=== PATIENT | male | born 1935 | race Caucasian/White ===

== ENCOUNTER 2016-05-18 23:23 | Inpatient (IN) ==
--- NOTE | 2016-05-19 00:34 | Emergency Department Note ---
Disposition Clinical Impression: Femur fracture, right Qualifiers: Encounter type: initial encounter Femur location: intertrochanteric Fracture type: closed Disposition: Admitted As Inpatient Time of Disposition: 01:51 Fall HPI - General Chief Complaint: ED Fall Stated Complaint: fall Time Seen by Provider: 05/18/16 23:39 Source: patient, EMS Mode of arrival: private vehicle Limitations: no limitations Nursing Notes Reviewed: Yes Vital Signs Reviewed: Yes - History of Present Illness HPI Narrative: 80-year-old male presents to the emergency department via EMS status post fall with complaint of an injury to his head, right thigh and abrasions to his fingers. Patient does state some possible loss of consciousness. He does remember the complete event. Patient states that he tripped and fell while walking back into his living area and attempting to move his wheelchair after smoking a cigarette. Patient is a DNR CC. 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 Fall From: standing Fall Witnessed: no Place Fall Occurred: [facility] Loss of Consciousness: unsure Prolonged Down Time?: no Context: tripped/slipped Location of injury: head Severity: moderate Quality: aching Associated symptoms (after fall): Denies: neck pain - Related Data Home Medications Medication Instructions Recorded Confirmed Albuterol Neb [AccuNeb] 0.83 mg IH Q4H PRN 03/08/15 03/08/15 Albuterol Sulfate [Albuterol 2 puff AER Q4H 03/08/15 03/08/15 Inhaler] Aspirin Enteric Coated [Aspirin] 81 mg PO DAILY 03/08/15 03/08/15 Clopidogrel [Plavix] 75 mg PO DAILY 03/08/15 03/08/15 Cyanocobalamin/FA/Pyridoxine 1 each PO DAILY 03/08/15 03/08/15 [[place] Tablet] Docusate Sodium [Colace] 100 mg PO DAILY 03/08/15 03/08/15 FLUoxetine HCl [PROzac] 20 mg PO DAILY 03/08/15 03/08/15 Fludrocortisone Acetate [Florinef] 0.1 mg PO BID 03/08/15 03/08/15 Furosemide [Lasix] 40 mg PO DAILY 03/08/15 03/08/15 HYDROcodone/Acet 5/325 mg [[place] 1 - 2 tab PO BID PRN 03/08/15 03/08/15 5-325 mg] LevETIRAcetam [Keppra] 500 mg PO BID 03/08/15 03/08/15 Midodrine [ProAmatine] 10 mg PO 0700,1200,199903/08/15 03/08/15 Pantoprazole Sodium 40 mg PO DAILY 03/08/15 03/08/15 Phenytoin [Dilantin] 50 mg PO HS 03/08/15 03/08/15 Potassium Chloride 20 meq PO BID 03/08/15 03/08/15 Pregabalin [Lyrica] 50 mg PO BID 03/08/15 03/08/15 Ranolazine [Ranexa] 500 mg PO BID 03/08/15 03/08/15 RisperiDONE [RisperDAL] 0.25 mg PO HS 03/08/15 03/08/15 Simvastatin [Zocor] 20 mg PO HS 03/08/15 03/08/15 Sucralfate [Carafate] 1 gm PO QID 03/08/15 03/08/15 Previous Rx's Medication Instructions Recorded Azithromycin [Azithromycin 6-Tab 250 mg PO DAILY #6 tab 03/08/15 Pack] PredniSONE [Prednisone] 3 tab PO DAILY #20 tablet 03/08/15 Allergies Allergy/AdvReac Type Severity Reaction Status Date / Time nitroglycerin Allergy Rash Verified 03/08/15 14:01 All systems ED: reviewed and negative except as stated. Constitutional: Denies: fever, chills Cardiovascular: Denies: chest pain Respiratory: Denies: cough, dyspnea Gastrointestinal: Denies: abdominal pain, nausea, vomiting Musculoskeletal: Reports: arthralgia, myalgia. Denies: back pain, neck pain Integumentary: Reports: abrasion. Denies: rash, lesions Neurological: Denies: headache Psychiatric: Denies: anxiety, depression, suicidal thoughts, homicidal thoughts Fall PMH - Past Medical History Medical history: Reports: cancer, COPD, coronary artery disease, CVA, glaucoma, hypertension, myocardial infarction, other Surgical history: Reports: angioplasty/stent Psychiatric history: Reports: depression - Social History Smoking Status: Current every day smoker Alcohol use: Reports: none Drug use: Reports: none Physical Exam - General Limitations: no limitations General appearance: alert - Head Head exam: atraumatic, normocephalic, normal inspection - Eye Eye exam: Present: normal appearance, PERRL - Neck Neck exam: Present: normal inspection, full ROM, trachea midline. Absent: tenderness - Chest Chest inspection: Present: normal inspection, symmetric chest wall rise - Respiratory Respiratory exam: Present: normal lung sounds bilaterally. Absent: respiratory distress - Cardiovascular Cardiovascular exam: Present: regular rate, normal rhythm, normal heart sounds - Abdominal Exam Abdominal exam: Present: soft, Non-Tender, normal bowel sounds. Absent: distention, guarding, rebound, rigidity - Expanded Lower Extremity Exam Upper leg exam: Present: tenderness, swelling Gait: not tested/not observed - Back Exam Back exam: Present: normal inspection, full ROM. Absent: tenderness, paraspinal tenderness, vertebral tenderness - Neurological Exam Neurological exam: Present: alert, oriented X3 - Psychiatric Psychiatric exam: Present: normal affect, normal mood - Skin Skin exam: Present: warm, dry, intact, normal color, other (Several small abrasions noted to bilateral hands and fingers. Bleeding controlled. Neurovascularly intact distally.) Course - Consultations Consultation #1: Discussed fracture with Dr. Santiago, discussed with Dr. Seya, he accepts, ortho will consult. Time: 01:49 Vital Signs Temperature 97.2 F L 05/18/16 23:25 Pulse Rate 59 05/18/16 23:25 Respiratory Rate 18 05/18/16 23:25 Blood Pressure 125/67 05/18/16 23:25 O2 Sat by Pulse Oximetry 98 05/18/16 23:25 Temperature 97.2 F L 05/18/16 23:25 Pulse Rate 65 05/19/16 02:04 Respiratory Rate 16 05/19/16 02:04 Blood Pressure 136/71 05/19/16 02:04 O2 Sat by Pulse Oximetry 100 05/19/16 02:04 Oxygen Delivery Oxygen Delivery Room Air Fall - Radiology Data Radiology results reviewed: Yes I reviewed the patient's radiology results. Attestation Statement - Attestation Attestation: I, Ziggy Pitts MD, personally performed a history and physical exam of the patient and discussed their management with the midlevel provicer, PAC/ROLL COVERER. I reviewed the midlevel provider's note and agree with the documented findings, medical decision making, and plan of care. 80-year-old male presents to the emergency department after he had a fall landing on his right hip and hitting his head. He denies loss of consciousness or headache. No neck pain. He does complain of pain in the right hip and right femur. On examination patient is a well-developed thin elderly male in no acute distress. He is alert and oriented 3. There is no cyanosis or diaphoresis. Head is atraumatic with no obvious injuries. No scalp tenderness or hematomas. Neck supple and nontender with full range of motion. Breath sounds are equal bilaterally. Heart regular rate and rhythm. Abdomen soft and nontender with normal bowel sounds. Wrist tenderness to palpation over the right hip and proximal to mid right femur. No obvious deformity. Neurovascular function distally. CT of the head and cervical spine was negative. X-ray of the right hip shows a nondisplaced intertrochanteric fracture. The PA discussed the case with the orthopedist americanization teacher, Dr. Santiago, and he recommended admission by the hospitalist. The hospitalist, Dr. Seay, was then consulted and accepted admission of the patient.
[2016-05-19] MEDS ORDERED: *HR* Morphine 2 MG/ML SYRINGE IV ONE (01:49)
[2016-05-19] MEDS ORDERED: Ondansetron 4 MG/2 ML VIAL IV ONE (01:49)
[2016-05-19] MEDS ORDERED: Ondansetron 4 MG/2 ML VIAL IVP PRN (02:08)
[2016-05-19] MEDS ORDERED: Naloxone 0.4 MG/ML INJ IVP PRN (02:08)
[2016-05-19] MEDS ORDERED: *HR* Morphine 2 MG/ML SYRINGE IVP PRN (02:08)
[2016-05-19] MEDS ORDERED: 0.9 % Sodium Chloride 1,000 ML IVC SCH (03:00)
--- NOTE | 2016-05-19 03:02 | Internal Med History&Physical ---
<RohitDanii Amandayaron Miller - Last Filed: 05/19/16 05:08> Date of Encounter: 05/19/16 Time of Encounter: 02:30 Assessment and Plan (1) Femur fracture, right Current visit: Yes Status: Acute XR Right Hip nondisplaced intertrochanteric fracture CT head without acute abnormality CT cervical spine without acute fracture or traumatic injury Chest x-ray left base atelectasis versus pneumonia, no acute fracture, no pleural effusion EKG-electronic pacemaker, interventricular conduction delay IVF, Pain management Consult Dr. 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 Current visit: Yes Status: Acute Echo 10/11/2015: LVEF 30-35%, global hypokinesis septum more hypokinetic than other segments -Grade 1 diastolic dysfunction Pacemaker-dependent cardiomyopathy Heart failure may be precipitating factor for fall Need to reevaluate heart function Echo, pending (3) Pre-syncope Current visit: Yes Status: Acute Pre-syncopal event leading to a fall and hip fracture Patient with pacemaker in place, also with known history of orthostatic hypotension Will interrogate pacemaker Carotid duplex US, pending Consult cardiology (4) History of orthostatic hypotension Current visit: Yes Status: Acute Continue midodrine and fludrocortisone Plan as above to evaluate additional causes of pre-syncope (5) Pacemaker Current visit: Yes Status: Acute Consult for pacemaker interrogation (6) DVT prophylaxis Current visit: Yes Status: Acute Internal Medicine - H&P: HPI Chief complaint: fall with broken femur Admitted From: Emergency Dept Plans for Post Hospital Care: Transfer Halfway Facility History of present illness: Mr. Beltran is a 80 year old male who presents to the hospital from [facility] patient states that at around 10 PM last night he went out to have a smoke. In order to go outside he must get out of his wheelchair, stand, and push his wheelchair over an elevated threshold. He states that when he returned inside, he fell as he tried to lift his wheelchair over the threshold. Patient states that he hit his head on a chair when he fell, cutting his right ear. He states that he lost consciousness. half-way worker found him. Patient states pain was 10 out of 10 after the fall and is now an 8-9 out of 10 after pain medication was given. Patient states that at the time of the fall he was feeling dizzy. He states that he has recently been feeling dizzy often. Denies headache, dizziness, blurry vision, double vision. Past Med Surg Social Fam HX - Past Medical History Medical history: cancer, COPD, coronary artery disease, CVA, glaucoma, hypertension, myocardial infarction, other (Left rib fractures, sinus bradycardia, pacemaker) Psychiatric history: depression - Past Surgical History Surgical History: angioplasty/stent (x1) - Social History Smoking Status: Current every day smoker Smokeless Tobacco Status: No Alcohol use: none Drug use: none - Family History Mother History Unknown: Yes Internal Medicine - H&P: Meds Albuterol Sulfate [Albuterol Inhaler] 2 puff IH Q4H PRN 03/08/15 [History] Aspirin Enteric Coated [Aspirin] 81 mg PO DAILY 03/08/15 [History] Clopidogrel [Plavix] 75 mg PO DAILY 03/08/15 [History] FLUoxetine HCl [PROzac] 40 mg PO DAILY 03/08/15 [History] Fludrocortisone Acetate [Florinef] 0.1 mg PO DAILY 03/08/15 [History] Furosemide [Lasix] 40 mg PO DAILY 03/08/15 [History] LevETIRAcetam [Keppra] 500 mg PO BID 03/08/15 [History] Midodrine [ProAmatine] 10 mg PO TID 03/08/15 [History] Potassium Chloride 20 meq PO BID 03/08/15 [History] Ranolazine [Ranexa] 500 mg PO BID 03/08/15 [History] RisperiDONE [RisperDAL] 0.25 mg PO HS 03/08/15 [History] Sucralfate [Carafate] 1 gm PO QID 03/08/15 [History] Albuterol Neb [Proventil Neb] 2.5 mg IH Q4HR PRN 05/19/16 [History] Ferrous Gluconate 324 mg PO DAILY 05/19/16 [History] Lisinopril [Zestril] 5 mg PO DAILY 05/19/16 [History] Losartan Potassium [Cozaar] 25 mg PO DAILY 05/19/16 [History] Metoprolol [Lopressor] 12.5 mg PO BID 05/19/16 [History] Phenytoin ER [Dilantin ER] 300 mg PO HS 05/19/16 [History] Allergies nitroglycerin Allergy (Verified 03/08/15 14:01) Rash All Systems PM: A 10-system review of systems was performed and is negative for pertinent findings except as documented above in the HPI. - Constitutional Constitutional: falls, no chills, no fever(s) - EENT Eyes: no blurry vision, no change in vision, no diplopia Additional comments: abrasion to right ear - Cardiovascular Cardiovascular ROS IM: dyspnea on exertion (chronic), no chest pain - Respiratory Respiratory: no cough - Gastrointestinal Gastrointestinal: no abdominal pain, no nausea, no vomiting - Genitourinary Genitourinary ROS male: no difficulty urinating - Musculoskeletal Musculoskeletal ROS IM: no myalgias (right lower extremity) - Neurological Neurological ROS: disequilibrium, dizziness, tremor(s) (chronic) - Constitutional Vitals: Temp Pulse Resp BP Pulse Ox 97.2 F L 65 16 136/71 100 05/18/16 23:25 05/19/16 02:04 05/19/16 02:22 05/19/16 02:22 05/19/16 02:04 General appearance: Present: A&O X 3, pleasant (Smiles during exam), no acute distress, answers questions appropriately - Head Head exam: Present: normocephalic (Cut to right ear) - Eye Eye exam: Present: EOMI, PERRL - ENT ENT exam: Present: mucous membranes dry - Neck Neck exam general surgery: Present: full ROM, normal inspection, supple - Respiratory Respiratory exam: Present: decreased breath sounds, prolonged expiratory phase, wheezes. Absent: accessory muscle use, chest wall tenderness, respiratory distress, tachypnea - Cardiovascular Cardiovascular exam: Present: distant heart sounds, RRR, +S2, systolic murmur Additional comments: no carotid bruit - GI/Abdominal GI/Abdominal exam: Present: normal bowel sounds, soft. Absent: hepatomegaly, splenomegaly, tenderness - Extremities Exam Extremities exam: Present: tenderness (Right lower extremity), radial pulses palpable and symetrical. Absent: pedal edema Additional comments: Right lower extremity warm with femoral and DP pulses 2+ No apparent hematoma - Neurological Exam Neurological exam: Present: CN II-XII intact, oriented X3. Absent: no focal deficits, facial droop, speech deficit - Psychiatric Psychiatric exam: Present: normal affect, normal mood Internal Med - H&P Results - Labs CBC & Chem 7: 05/19/16 02:58 05/19/16 02:58 Labs: Laboratory Tests 05/19/16 02:58 WBC 21.6 H RBC 3.60 L Hgb 10.6 L Hct 33.9 L MCV 94.2 MCH 29.4 MCHC 31.3 L RDW 13.6 Plt Count 244 MPV 11.9 Immature Gran % 0.6 Seg Neutrophils % 83.7 Lymphocytes % 6.3 Monocytes % 7.6 Eosinophils % 1.3 Basophils % 0.5 Neutrophils # 18.0 H Lymphocytes # 1.4 Monocytes # 1.6 H Eosinophils # 0.3 Basophils # 0.1 Immature Plt Fraction 8.9 H - EKG Data EKG shows normal: sinus rhythm, axis (left axis) Rate: normal (electronic atrial pacemaker) - Impressions Cervical Spine CT 05/18/16 23:39 IMPRESSION: No fracture identified. D/ / Aldair Garland MD / Aldair Garland MD Interpreting Provider: Aldair Garland MD Head CT 05/18/16 23:39 IMPRESSION: No acute intracranial abnormality. D/ / Aldair Garland MD / Aldair Garland MD Interpreting Provider: Aldair Garland MD Femur X-Ray 05/19/16 00:01 IMPRESSION: Intertrochanteric fracture of the right hip. D/ / Aldair Garland MD / Aldair Garland MD Interpreting Provider: Aldair Garland MD Pelvis X-Ray 05/19/16 00:01 IMPRESSION: Intertrochanteric fracture of the right hip. D/ / Aldair Garland MD / Aldair Garland MD Interpreting Provider: Aldair Garland MD Chest X-Ray 05/19/16 01:49 IMPRESSION: Left basilar atelectasis or, less likely, pneumonia. D/ / Riccardo Ferrara MD / Riccardo Ferrara MD Interpreting Provider: Riccardo Ferrara MD - Attending Attestation I examined this patient and my medical decision-making was reviewed with the TAPER AND FLOATER/PA/Advanced Practice Nurse/Resident Physician. I agree with the documented findings, disposition and treatment plan as described except to the extent set forth below. <HouMargarito Blu - Last Filed: 05/22/16 01:07> Internal Medicine - H&P: HPI History of present illness: Mr. Beltran is a 80 year old male to [facility] with chief complaint of mechanical fall with acute pain of his right hip and inability to walk due to intertrochanteric fracture. The patient was visited and interviewed and examined. I examined this patient and my medical decision-making was reviewed with the Resident Physician. I agree with the documented findings, disposition and treatment plan as described except to the extent set forth below. Cumulative laboratory and radiographic database was reviewed and considered and discussed. Pertinent ancillary medical records including ECW and PCI documentation when available was reviewed and considered. Given the patient's presenting concerns, past medical history, clinical findings and symptoms, he is admitted at this time did the consider further evaluation and disposition. Orders were written as per the computerized physician border guard system........................... All Systems PM: A 10-system review of systems was performed and is negative for pertinent findings except as documented above in the HPI. - Constitutional Vitals: Temp Pulse Resp BP Pulse Ox 99.0 F 89 15 124/66 100 05/21/16 21:38 05/21/16 21:38 05/21/16 21:38 05/21/16 21:38 05/21/16 21:38 Internal Med - H&P Results - Labs CBC & Chem 7: 05/21/16 05:59 05/20/16 03:19 Labs: Short CBC 05/21/16 Range/Units 05:59 Hgb 8.3 L (12.9-16.9) g/dL Hct 27.1 L (37.5-50.1) % - Impressions ITS Impressions Chest CT 05/19/16 04:27 IMPRESSION: Slight bibasilar atelectasis or scarring. No acute airspace disease. Slight to mild bullous changes. No significant acute abnormality. Old granulomatous disease. No finding worrisome for malignancy. Benign left adrenal nodule. No follow-up necessary. D/ / Ernst Mckenzie MD / Ernst Mckenzie MD Interpreting Provider: Ernst Mckenzie MD Fluoroscopy 05/20/16 17:13 IMPRESSION: Intraprocedural fluoroscopic spot images as above. See separate procedure report for more information. D/ / Vazquez Mccarthy MD / Vazquez Mccarthy MD Interpreting Provider: Vazquez Mccarthy MD Hip X-Ray 05/20/16 17:13 IMPRESSION: Intraprocedural fluoroscopic spot images as above. See separate procedure report for more information. D/ / Vazquez Mccarthy MD / Vazquez Mccarthy MD Interpreting Provider: Vazquez Mccarthy MD Abnormal lab results WBC 12.4 K/mcL (4.3-11.1) H 05/20/16 03:19 RBC 3.14 M/mcL (4.19-5.50) L 05/20/16 03:19 Hgb 8.3 g/dL (12.9-16.9) L 05/21/16 05:59 Hct 27.1 % (37.5-50.1) L 05/21/16 05:59 MCHC 31.2 g/dL (31.6-35.5) L 05/20/16 03:19 Monocytes # 1.9 K/mcL (0.0-1.3) H 05/20/16 03:19 Immature Plt Fraction 8.9 % (1.1-6.1) H 05/19/16 02:58 APTT 25.2 Seconds (26.0-36.0) L 05/19/16 02:58 Glucose 119 mg/dL (70-99) H 05/20/16 03:19 LDL Cholesterol, Calc 117 mg/dL (0-99) H 05/20/16 03:19 HDL Cholesterol 37 mg/dL (40-59) L 05/20/16 03:19 Urine Microscopic RBC 3-5 per hpf (0-3) H 05/19/16 03:30 Ur Squamous Epith Cells Many per lpf (None-Few) H 05/19/16 03:30 Laboratory Last Values WBC 12.4 K/mcL (4.3-11.1) H 05/20/16 03:19 RBC 3.14 M/mcL (4.19-5.50) L 05/20/16 03:19 Hgb 8.3 g/dL (12.9-16.9) L 05/21/16 05:59 Hct 27.1 % (37.5-50.1) L 05/21/16 05:59 MCV 93.9 fL (83.0-100.0) 05/20/16 03:19 MCH 29.3 pg (28.0-33.3) 05/20/16 03:19 MCHC 31.2 g/dL (31.6-35.5) L 05/20/16 03:19 RDW 13.7 % (11.5-14.5) 05/20/16 03:19 Plt Count 189 K/mcL (140-400) 05/20/16 03:19 MPV 11.9 fL (9.4-12.4) 05/20/16 03:19 Immature Gran % 0.5 % (0-4) 05/20/16 03:19 Seg Neutrophils % 69.2 % 05/20/16 03:19 Lymphocytes % 12.5 % 05/20/16 03:19 Monocytes % 15.2 % 05/20/16 03:19 Eosinophils % 2.0 % 05/20/16 03:19 Basophils % 0.6 % 05/20/16 03:19 Neutrophils # 8.6 K/mcL (1.6-8.9) 05/20/16 03:19 Lymphocytes # 1.6 K/mcL (0.6-4.6) 05/20/16 03:19 Monocytes # 1.9 K/mcL (0.0-1.3) H 05/20/16 03:19 Eosinophils # 0.3 K/mcL (0.0-0.6) 05/20/16 03:19 Basophils # 0.1 K/mcL (0.0-0.2) 05/20/16 03:19 Immature Plt Fraction 8.9 % (1.1-6.1) H 05/19/16 02:58 PT 11.1 Seconds (9.4-12.1) 05/20/16 03:19 INR 1.0 05/20/16 03:19 APTT 25.2 Seconds (26.0-36.0) L 05/19/16 02:58 Sodium 139 mEq/L (136-145) 05/20/16 03:19 Potassium 4.4 mEq/L (3.5-4.5) 05/20/16 03:19 Chloride 105 mEq/L (98-109) 05/20/16 03:19 Carbon Dioxide 27 mEq/L (19-29) 05/20/16 03:19 BUN 19 mg/dL (8-26) 05/20/16 03:19 Creatinine 1.12 mg/dL (0.72-1.25) 05/20/16 03:19 Est GFR ( Amer) > 60 (> 60) 05/20/16 03:19 Est GFR (Non-Af Amer) > 60 (> 60) 05/20/16 03:19 BUN/Creatinine Ratio 17 (6-26) 05/20/16 03:19 Glucose 119 mg/dL (70-99) H 05/20/16 03:19 Calculated Osmolality 291 (280-300) 05/20/16 03:19 Calcium 8.7 mg/dL (8.6-10.8) 05/20/16 03:19 Phosphorus 3.0 mg/dL (2.3-4.7) 05/19/16 02:58 Magnesium 2.1 mg/dL (1.6-2.6) 05/19/16 02:58 Triglycerides 110 mg/dL (< 150) 05/20/16 03:19 Cholesterol 176 mg/dL (< 200) 05/20/16 03:19 LDL Cholesterol, Calc 117 mg/dL (0-99) H 05/20/16 03:19 VLDL Cholesterol, Calc 22 mg/dL (< 31) 05/20/16 03:19 HDL Cholesterol 37 mg/dL (40-59) L 05/20/16 03:19 Cholesterol/HDL Ratio 4.8 (0-4.9) 05/20/16 03:19 Urine Color Yellow (Yellow) 05/19/16 03:30 Urine Clarity Clear (Clear) 05/19/16 03:30 Urine pH 6.0 pH Units (5.0-8.0) 05/19/16 03:30 Ur Specific [place] 1.022 (1.010-1.025) 05/19/16 03:30 Urine Protein Trace mg/dL (Neg-Trace) 05/19/16 03:30 Urine Glucose (UA) Normal mg/dL (Normal) 05/19/16 03:30 Urine Ketones Negative mg/dL (Negative) 05/19/16 03:30 Urine Blood Negative (Negative) 05/19/16 03:30 Urine Nitrite Negative (Negative) 05/19/16 03:30 Urine Bilirubin Negative (Negative) 05/19/16 03:30 Urine Urobilinogen Normal mg/dL (Normal) 05/19/16 03:30 Ur Leukocyte Esterase Negative (Negative) 05/19/16 03:30 Urine Microscopic RBC 3-5 per hpf (0-3) H 05/19/16 03:30 Urine Microscopic WBC 0-3 per hpf (0-3) 05/19/16 03:30 Ur Squamous Epith Cells Many per lpf (None-Few) H 05/19/16 03:30 Urine Bacteria None Seen per hpf (None-Few) 05/19/16 03:30 Hyaline Casts None Seen per lpf (None-Few) 05/19/16 03:30 Ur Culture Indicated? NO (NO) 05/19/16 03:30 Blood Type B POSITIVE 05/21/16 08:44 Antibody Screen NEGATIVE 05/21/16 08:44 Crossmatch See Detail 05/21/16 08:44 - Attending Attestation My signature below is to certify that this patient is under my care and that I, or the Resident Physician working with me, has had a [id number] encounter with this patient. Plan of care has been reviewed and discussed in detail. Questions addressed. Advance care directive discussion briefly addressed. The patient does acknowledge specific restrictions to be initiated. Outpatient medication schedules will be reviewed, confirmed and facilitated as appropriate. Reconciliation of home treatments including adjustments, substitutions and reintroduction to the treatment regimen to address necessary mental facilities for chronic pre-existing medical conditions. Smoking cessation counseling briefly addressed. The patient accepts nicotine substitutes at this admission. Hospital course depend on clinical findings, response and difficult stated interventions. The patient is at risk for further acute clinical decline and morbidity given presenting chief complaint, findings and associated comorbidities. Condition is serious. Prognosis is cautiously optimistic. CODE STATUS is DNR comfort care arrest DNI.
[2016-05-19] MEDS ORDERED: Acetaminophen 325 MG TABLET PO PRN (03:04)
[2016-05-19 03:22] LABS: Basophils # 0.1 K/mcL (0.0-0.2); Basophils % 0.5 %; Eosinophils # 0.3 K/mcL (0.0-0.6); Eosinophils % 1.3 %; Hematocrit 33.9 % (37.5-50.1); Hemoglobin 10.6 g/dL (12.9-16.9); Immature Granulocytes % 0.6 % (0-4); Immature Platelets 8.9 % (1.1-6.1); Lymphocytes # 1.4 K/mcL (0.6-4.6); Lymphocytes % 6.3 %; Mean Corpuscular HGB Conc 31.3 g/dL (31.6-35.5); Mean Corpuscular Hemoglobin 29.4 pg (28.0-33.3); Mean Corpuscular Volume 94.2 fL (83.0-100.0); Mean Platelet Volume 11.9 fL (9.4-12.4); Monocytes # 1.6 K/mcL (0.0-1.3); Monocytes % 7.6 %; Platelet Count 244 K/mcL (140-400); Red Cell Distribution Width 13.6 % (11.5-14.5); Segmented Neutrophils % 83.7 %
[2016-05-19 03:28] LABS: INR 1.1; Prothrombin Time 11.5 Seconds (9.4-12.1)
[2016-05-19 03:31] LABS: Activated Partial Thrombo Time 25.2 Seconds (26.0-36.0)
[2016-05-19 03:44] LABS: BUN/Creatinine Ratio 19 (6-26); Blood Urea Nitrogen 18 mg/dL (8-26); Calcium 9.5 mg/dL (8.6-10.8); Carbon Dioxide 26 mEq/L (19-29); Chloride 106 mEq/L (98-109); Glucose 141 mg/dL (70-99); Magnesium 2.1 mg/dL (1.6-2.6); Osmolality,Calculated 296 (280-300); Potassium 4.9 mEq/L (3.5-4.5); Sodium 141 mEq/L (136-145); eGFR For African Americans > 60 (> 60); eGFR For Non-African Americans > 60 (> 60)
[2016-05-19 03:48] LABS: Bilirubin,Urine Negative (Negative); Blood,Urine Negative (Negative); Clarity,Urine Clear (Clear); Color,Urine Yellow (Yellow); Glucose,Urine (UA) Normal (Normal); Ketones,Urine Negative (Negative); Leukocyte Esterase,Urine Negative (Negative); Nitrite,Urine Negative (Negative); Protein,Urine Trace mg/dL (Neg-Trace); Specific Gravity,Urine 1.022 (1.010-1.025); Urobilinogen,Urine Normal (Normal)
[2016-05-19 03:51] LABS: Bacteria,Urine None Seen per hpf (None-Few); Hyaline Casts,Urine None Seen per lpf (None-Few); Squamous Epithelial Cell,Urine Many per lpf (None-Few); WBC,Urine 0-3 per hpf (0-3)
[2016-05-19] MEDS ORDERED: Acetaminophen 325 MG TABLET PO SCH (04:00)
[2016-05-19] MEDS ORDERED: *HR* OxyCODONE Immed Rel 5 MG TABLET PO SCH (04:00)
[2016-05-19] MEDS ORDERED: Albuterol Neb 0.63 MG/3 ML VIAL IH PRN (05:38)
--- NOTE | 2016-05-19 06:37 | Orthopedic Consult Note ---
Date of Encounter: 05/19/16 Time of Encounter: 06:36 History of Present Illness HPI: Mr. Beltran is a 80 year old male Lives in a half-way status post fall yesterday injuring his right hip. Patient is alert and oriented 3 Right lower extremity shortened external rotated decreased range of motion secondary to pain Neurovascular intact X-rays show right hip intratrochanteric fracture Plan is for surgery tomorrow right hip open reduction intramedullary nail fixation discussed risks benefits as well as recovery with patient Past Med Surg Social Fam HX - Past Medical History Medical history: cancer, COPD, coronary artery disease, CVA, glaucoma, hypertension, myocardial infarction, other (Left rib fractures, sinus bradycardia, pacemaker) Psychiatric history: depression - Past Surgical History Surgical History: angioplasty/stent (x1) - Social History Smoking Status: Current every day smoker Packs per day: 0.5 Smokeless Tobacco Status: No Alcohol use: none Drug use: none - Family History Mother History Unknown: Yes Medications and Allergies Albuterol Neb [AccuNeb] 0.83 mg IH Q4H PRN 03/08/15 [History] Albuterol Sulfate [Albuterol Inhaler] 2 puff AER Q4H 03/08/15 [History] Aspirin Enteric Coated [Aspirin] 81 mg PO DAILY 03/08/15 [History] Clopidogrel [Plavix] 75 mg PO DAILY 03/08/15 [History] FLUoxetine HCl [PROzac] 20 mg PO DAILY 03/08/15 [History] Fludrocortisone Acetate [Florinef] 0.1 mg PO DAILY 03/08/15 [History] Furosemide [Lasix] 40 mg PO DAILY 03/08/15 [History] LevETIRAcetam [Keppra] 500 mg PO BID 03/08/15 [History] Midodrine [ProAmatine] 10 mg PO 0700,1200,2000 03/08/15 [History] Pantoprazole Sodium 40 mg PO DAILY 03/08/15 [History] Phenytoin [Dilantin] 100 mg PO HS 03/08/15 [History] Potassium Chloride 20 meq PO BID 03/08/15 [History] Ranolazine [Ranexa] 500 mg PO BID 03/08/15 [History] RisperiDONE [RisperDAL] 0.25 mg PO HS 03/08/15 [History] Sucralfate [Carafate] 1 gm PO QID 03/08/15 [History] Ferrous Gluconate 324 mg PO DAILY 05/19/16 [History] Lisinopril [Zestril] 5 mg PO DAILY 05/19/16 [History] Losartan Potassium [Cozaar] 25 mg PO DAILY 05/19/16 [History] Metoprolol [Lopressor] 25 mg PO BID 05/19/16 [History] Allergies nitroglycerin Allergy (Verified 03/08/15 14:01) Rash All Systems Reviewed: A 10-system review of systems was performed and is negative for pertinent findings except as documented above in the HPI. Physical Exam - Constitutional Vitals: Temp Pulse Resp BP Pulse Ox 97.5 F L 69 16 129/63 100 05/19/16 02:48 05/19/16 02:48 05/19/16 02:48 05/19/16 02:48 05/19/16 02:48 Results - Labs Result Diagrams: 05/19/16 02:58 05/19/16 02:58 Labs: Abnormal lab results WBC 21.6 K/mcL (4.3-11.1) H 05/19/16 02:58 RBC 3.60 M/mcL (4.19-5.50) L 05/19/16 02:58 Hgb 10.6 g/dL (12.9-16.9) L 05/19/16 02:58 Hct 33.9 % (37.5-50.1) L 05/19/16 02:58 MCHC 31.3 g/dL (31.6-35.5) L 05/19/16 02:58 Neutrophils # 18.0 K/mcL (1.6-8.9) H 05/19/16 02:58 Monocytes # 1.6 K/mcL (0.0-1.3) H 05/19/16 02:58 Immature Plt Fraction 8.9 % (1.1-6.1) H 05/19/16 02:58 APTT 25.2 Seconds (26.0-36.0) L 05/19/16 02:58 Potassium 4.9 mEq/L (3.5-4.5) H 05/19/16 02:58 Glucose 141 mg/dL (70-99) H 05/19/16 02:58 Urine Microscopic RBC 3-5 per hpf (0-3) H 05/19/16 03:30 Ur Squamous Epith Cells Many per lpf (None-Few) H 05/19/16 03:30 H & H 05/19/16 Range/Units 02:58 Hgb 10.6 L (12.9-16.9) g/dL Hct 33.9 L (37.5-50.1) % All other labs normal. Consult Discharge Plan - Plan Referrals: Edson Menendez MD [Primary Care Provider] -
[2016-05-19] MEDS ORDERED: Albuterol Neb 0.63 MG/3 ML VIAL IH SCH (08:00)
[2016-05-19] MEDS: Sucralfate 1 GM TABLET PO SCH ×4 (10:17→20:15)
[2016-05-19] MEDS: levETIRAcetam 250 MG TABLET PO SCH ×2 (10:18→20:15)
[2016-05-19] MEDS: FLUoxetine 20 MG CAPSULE PO SCH (10:18)
[2016-05-19] MEDS: Ranolazine 500 MG TAB.ER.12H PO SCH ×2 (10:19→20:15)
[2016-05-19] MEDS: Furosemide 40 MG TABLET PO SCH (10:19)
[2016-05-19] MEDS: Pantoprazole 40 MG VIAL IVP SCH (10:20)
[2016-05-19] MEDS: *HR* OxyCODONE Immed Rel 5 MG TABLET PO PRN ×3 (10:35→20:15)
--- NOTE | 2016-05-19 11:03 | Cardiology Consult Note ---
<Elias Joe R - Last Filed: 05/19/16 11:10> Date of Encounter: 05/19/16 Time of Encounter: 11:03 Assessment and Plan (1) Pre-operative cardiovascular examination Current Visit: Yes Status: Acute Pt has hx of CAD and PCI approximately 6 years ago at [facility]. Hx of ICMP, which has since resolved. Pt had a negative stress test 05/2014. Echo obtained this AM shows preserved EF, no significant valvular dysfunction. Pt reports atypical chest pain--left sided at rest when he is upset or anxious-- noncardiac. Denies any chest pain on exertion or radiation of pain. Reported syncopal event--likely secondary to known orthostatic hypotension in the past. On scheduled Florinef. Will adjust antihypertensives. Pt is acceptable moderate risk from a cardiac standpoint to proceed with surgery. Pt does not have an ICD or PPM in place. Cardiology signing off. Reconsult PRN. (2) History of cardiomyopathy Current Visit: No Status: Resolved Hx of CMP. EF has normalized since revascularization. Echo this AM preliminarily read by Dr. Logan shows preserved EF. Gated EF on stress test in 2014 also preserved. (3) Femur fracture, right Current Visit: Yes Status: Acute Management per Dr. Santiago with plans for surgery in AM. Qualifiers: Encounter type: initial encounter Femur location: intertrochanteric Fracture type: closed Fracture alignment: nondisplaced Qualified Code(s): S72.144A - Nondisplaced intertrochanteric fracture of right femur, initial encounter for closed fracture (4) History of orthostatic hypotension Current Visit: Yes Status: Acute Continue midodrine and fludrocortisone. Will stop Cozaar and decrease Lisinopril. (5) CAD (coronary artery disease) Current Visit: Yes Status: Acute Hx of PCI. Continue ASA, Statin, BB. Qualifiers: Coronary Disease-Associated Artery/Lesion type: [place] artery [place] vs. transplanted heart: [place] heart Associated angina: without angina Qualified Code(s): I25.10 - Atherosclerotic heart disease of [place] coronary artery without angina pectoris (6) Syncope Current Visit: Yes Status: Acute Likely secondary to orthostatic hypotension. Florinef scheduled, adjusting meds. No arrhythmias noted on tele. Qualifiers: Syncope type: unspecified Qualified Code(s): R55 - Syncope and collapse Discussion w patient/family: The assessment and plan as outlined above was discussed with the patient and/or family members who expressed understanding and agreement. All questions were answered. Thank you for involving us in the care of your patient. Please call with any questions. I will discuss all the above with Dr. Logan and make changes as necessary. History of Present Illness Consult date: 05/19/16 Requesting physician: Danii Bee Consult reason: Pre-op Chief complaint: fall History of present illness: Mr. Beltran is a 80 year old male with PMH of CAD s/p PCI, CVA, CHF, systolic dysfunction that has since recovered, tobacco abuse that presents to the hospital from [facility] patient states that at around 10 PM last night he went out to have a smoke. In order to go outside he must get out of his wheelchair, stand, and push his wheelchair over an elevated threshold. He states that when he returned inside, he fell as he tried to lift his wheelchair over the threshold. Patient states that he hit his head on a chair when he fell, cutting his right ear. He states that he lost consciousness. [employer] worker found him. Pt reports dizziness. Has documented hx of hypotension which he was previously on Florinef for and reports he has not aken it recently. He reports left sided chest aching at rest when he gets anxious-- no radiation, no worsened on exertion. He had a negative stress test 05/15/14 with preserved EF at that time. Most recent echo was 2011 where EF 45% which had improved since 2011. Pt found to have right hip fx. Planned surgery tomorrow. Echo completed this AM final results pending but preliminary results show preserved EF, no significant valvular dysfunction. Past Med Surg Social Fam HX - Past Medical History Medical history: cancer, cardiomyopathy, COPD, coronary artery disease, CVA, glaucoma, hypertension, myocardial infarction, other (Left rib fractures, sinus bradycardia, pacemaker) Psychiatric history: depression - Past Surgical History Surgical History: angioplasty/stent (x1) - Social History Smoking Status: Current every day smoker Packs per day: 0.5 Smokeless Tobacco Status: No Alcohol use: none Drug use: none - Family History Mother History Unknown: Yes Medications and Allergies Albuterol Neb [AccuNeb] 0.83 mg IH Q4H PRN 03/08/15 [History] Albuterol Sulfate [Albuterol Inhaler] 2 puff AER Q4H 03/08/15 [History] Aspirin Enteric Coated [Aspirin] 81 mg PO DAILY 03/08/15 [History] Clopidogrel [Plavix] 75 mg PO DAILY 03/08/15 [History] FLUoxetine HCl [PROzac] 20 mg PO DAILY 03/08/15 [History] Fludrocortisone Acetate [Florinef] 0.1 mg PO DAILY 03/08/15 [History] Furosemide [Lasix] 40 mg PO DAILY 03/08/15 [History] LevETIRAcetam [Keppra] 500 mg PO BID 03/08/15 [History] Midodrine [ProAmatine] 10 mg PO 0700,1200,2000 03/08/15 [History] Pantoprazole Sodium 40 mg PO DAILY 03/08/15 [History] Phenytoin [Dilantin] 100 mg PO HS 03/08/15 [History] Potassium Chloride 20 meq PO BID 03/08/15 [History] Ranolazine [Ranexa] 500 mg PO BID 03/08/15 [History] RisperiDONE [RisperDAL] 0.25 mg PO HS 03/08/15 [History] Sucralfate [Carafate] 1 gm PO QID 03/08/15 [History] Ferrous Gluconate 324 mg PO DAILY 05/19/16 [History] Lisinopril [Zestril] 5 mg PO DAILY 05/19/16 [History] Losartan Potassium [Cozaar] 25 mg PO DAILY 05/19/16 [History] Metoprolol [Lopressor] 25 mg PO BID 05/19/16 [History] Allergies nitroglycerin Allergy (Verified 03/08/15 14:01) Rash All Systems Review: A 10-system review of systems was performed and is negative for pertinent findings except as documented above in the HPI. - Constitutional Constitutional: weakness - Cardiovascular Cardiovascular: chest pain at rest, lightheadedness, syncope Physical Examination Vital Signs, Last 4 Hours Temp Pulse Resp BP Pulse Ox 05/19/16 07:34 98.0 F 66 17 101/62 100 Vital Signs Temp Pulse Resp BP Pulse Ox 05/19/16 07:34 98.0 F 66 17 101/62 100 05/19/16 02:48 97.5 F L 69 16 129/63 100 05/19/16 02:45 100 05/19/16 02:22 16 136/71 05/19/16 02:04 65 16 136/71 100 05/19/16 01:18 62 16 106/90 100 05/18/16 23:37 100 05/18/16 23:25 97.2 F L 59 18 125/67 98 Intake and Output 05/18/16 05/19/16 05/19/16 23:59 07:59 15:59 Intake Total 240 / 240 Balance 240 / 240 Intake: Oral 240 / 240 Other: Meal Breakfast Percent of Meal Consumed 100% Weight 79.379 kg 65.317 kg Patient Weight 05/19/16 23:59 Weight 65.317 kg General: Conversant, No Apparent Distress HEENT: Atraumatic, Normocephaly, Mucus Membranes Moist Neck: No JVD, Normal carotid pulses Cardiac: Reg Rate and Rhythm, Normal S1 and S2, No Murmur Lungs: Normal Breath Sounds, No Wheeze, Rales, Rhonchi Neuro: Alert and responsive, No focal deficits noted Abdomen: Soft, Non-Tender Skin: No rashes noted on visualized skin Musculoskeletal: No Chest Wall Tenderness Extremities: No Clubbing, No Cyanosis, No Edema, Normal Pulses Results 05/19/16 02:58 05/19/16 02:58 Lab Results 05/19/16 05/19/16 05/19/16 02:58 02:58 02:58 WBC 21.6 H Hgb 10.6 L Hct 33.9 L Plt Count 244 INR 1.1 APTT 25.2 L Sodium 141 Potassium 4.9 H Chloride 106 Carbon Dioxide 26 BUN 18 Creatinine 0.97 Glucose 141 H Calcium 9.5 Magnesium 2.1 Short CBC 05/19/16 Range/Units 02:58 WBC 21.6 H (4.3-11.1) K/mcL Hgb 10.6 L (12.9-16.9) g/dL Hct 33.9 L (37.5-50.1) % Plt Count 244 (140-400) K/mcL Neutrophils # 18.0 H (1.6-8.9) K/mcL BMP 05/19/16 Range/Units 02:58 Sodium 141 (136-145) mEq/L Potassium 4.9 H (3.5-4.5) mEq/L Chloride 106 (98-109) mEq/L Carbon Dioxide 26 (19-29) mEq/L BUN 18 (8-26) mg/dL Creatinine 0.97 (0.72-1.25) mg/dL Glucose 141 H (70-99) mg/dL Calcium 9.5 (8.6-10.8) mg/dL Urine 05/19/16 Range/Units 03:30 Urine Color Yellow (Yellow) Urine Clarity Clear (Clear) Urine pH 6.0 (5.0-8.0) pH Units Ur Specific [place] 1.022 (1.010-1.025) Urine Protein Trace (Neg-Trace) mg/dL Urine Glucose (UA) Normal (Normal) mg/dL Impressions Cervical Spine CT 05/18/16 23:39 IMPRESSION: No fracture identified. D/ / Aldair Garland MD / Aldair Garland MD Interpreting Provider: Aldair Garland MD Head CT 05/18/16 23:39 IMPRESSION: No acute intracranial abnormality. D/ / Aldair Garland MD / Aldair Garland MD Interpreting Provider: Aldair Garland MD Femur X-Ray 05/19/16 00:01 IMPRESSION: Intertrochanteric fracture of the right hip. D/ / Aldair Garland MD / Aldair Garland MD Interpreting Provider: Aldair Garland MD Pelvis X-Ray 05/19/16 00:01 IMPRESSION: Intertrochanteric fracture of the right hip. D/ / Aldair Garland MD / Aldair Garland MD Interpreting Provider: Aldair Garland MD Chest X-Ray 05/19/16 01:49 IMPRESSION: Left basilar atelectasis or, less likely, pneumonia. D/ / Riccardo Ferrara MD / Riccardo Ferrara MD Interpreting Provider: Riccardo Ferrara MD Active Medications Acetaminophen (Tylenol) 650 mg PO Q4HR PRN PRN Reason: Pain Stop: 11/18/16 04:01 Albuterol Sulfate (Accuneb) 0.83 mg IH [id number] PRN PRN Reason: Shortness Of Breath/Wheezing Stop: 11/18/16 08:01 Docusate Sodium (Colace) 100 mg PO BID PRN PRN Reason: Constipation Stop: 11/18/16 02:09 Ferrous Sulfate (Ferrous Sulfate) 325 mg PO DAILY BJ Stop: 11/18/16 09:01 Last Admin: 05/19/16 10:18 Dose: 325 mg Fludrocortisone Acetate (Florinef) 0.1 mg PO DAILY BJ Stop: 11/18/16 09:01 Last Admin: 05/19/16 10:17 Dose: 0.1 mg Fluoxetine HCl (Prozac) 20 mg PO DAILY BJ PRN Reason: Protocol Stop: 11/18/16 09:01 Last Admin: 05/19/16 10:18 Dose: 20 mg Furosemide (Lasix) 40 mg PO DAILY BJ Stop: 11/18/16 09:01 Last Admin: 05/19/16 10:19 Dose: 40 mg Sodium Chloride (0.9 % Sodium Chloride) 1,000 mls @ 100 mls/hr IVC .Q10H BJ Stop: 11/18/16 03:01 Last Admin: 05/19/16 05:18 Dose: 100 mls/hr Levetiracetam (Keppra) 500 mg PO BID BJ Stop: 11/18/16 09:01 Last Admin: 05/19/16 10:18 Dose: 500 mg Lisinopril (Zestril) 5 mg PO DAILY BJ PRN Reason: Protocol Stop: 11/18/16 09:01 Last Admin: 05/19/16 10:19 Dose: 5 mg Losartan Potassium (Cozaar) 25 mg PO DAILY JB Stop: 11/18/16 09:01 Last Admin: 05/19/16 10:19 Dose: 25 mg Metoprolol Tartrate (Lopressor) 25 mg PO BID BJ Stop: 11/18/16 09:01 Last Admin: 05/19/16 10:19 Dose: 25 mg Midodrine (Proamatine) 10 mg PO 0700,1200,2000 [facility] Stop: 11/18/16 07:01 Last Admin: 05/19/16 10:18 Dose: 10 mg Morphine Sulfate (Morphine Sulfate) 2 mg IVP Q2H PRN PRN Reason: Severe Pain (7-10) Stop: 11/18/16 02:09 Naloxone HCl (Narcan) 0.4 mg IVP Q2MIN PRN PRN Reason: Opioid Reversal Stop: 11/18/16 02:09 Omeprazole (Prilosec) 20 mg PO DAILY [facility] Stop: 11/18/16 09:01 Last Admin: 05/19/16 10:21 Dose: 20 mg Ondansetron HCl (Zofran) 4 mg IVP Q6HR PRN PRN Reason: Nausea And Vomiting Stop: 11/18/16 02:09 Oxycodone HCl (Roxicodone) 5 mg PO Q4HR PRN PRN Reason: Pain Stop: 11/18/16 04:01 Last Admin: 05/19/16 10:35 Dose: 5 mg Pantoprazole Sodium (Protonix) 40 mg IVP DAILY [facility] Stop: 11/18/16 09:01 Last Admin: 05/19/16 10:20 Dose: 40 mg Phenytoin (Dilantin) 100 mg PO HS [facility] Stop: 11/18/16 21:01 Potassium Chloride (Potassium Chloride) 20 meq PO BID [facility] Stop: 11/18/16 09:01 Ranolazine (Ranexa) 500 mg PO BID [facility] Stop: 11/18/16 09:01 Last Admin: 05/19/16 10:19 Dose: 500 mg Risperidone (Risperdal) 0.25 mg PO HS [facility] Stop: 11/18/16 21:01 Sucralfate (Carafate) 1 gm PO QID [facility] Stop: 11/18/16 09:01 Last Admin: 05/19/16 10:17 Dose: 1 gm - Imaging and Cardiology Stress Test: report reviewed (Impression: Pharmacologic stress ECG is non diagnostic for ischemia due to failure to reach target heartrate. Patient described chest discomfort during the study. 05/15/14--Gated EF = 66%. Mild intensity, fixed apical defect c/w artifact. This study was negative for ischemia or infarct.) Echo: report reviewed (preliminary results--preserved EF, no significant valvular dysfunction.) - EKG Interpretation EKG results cardiology: personally reviewed (SR, IVC delay), other (12 hour tele AVG HR 72, SR, no significant pauses or arrhythmias) Consult Discharge Plan - Plan Referrals: Edson Menendez MD [Primary Care Provider] - <Jaylan Logan G - Last Filed: 05/19/16 13:33> Date of Encounter: 05/19/16 Assessment and Plan Discussion w patient/family: The assessment and plan as outlined above was discussed with the patient and/or family members who expressed understanding and agreement. All questions were answered. Thank you for involving us in the care of your patient. Please call with any questions. History of Present Illness History of present illness: Mr. Beltran is a 80 year old male All Systems Review: A 10-system review of systems was performed and is negative for pertinent findings except as documented above in the HPI. Physical Examination Vital Signs, Last 4 Hours Temp Pulse Resp BP Pulse Ox 05/19/16 07:34 98.0 F 66 17 101/62 100 Results 05/19/16 02:58 05/19/16 02:58 Lab Results 05/19/16 05/19/16 05/19/16 02:58 02:58 02:58 WBC 21.6 H Hgb 10.6 L Hct 33.9 L Plt Count 244 INR 1.1 APTT 25.2 L Sodium 141 Potassium 4.9 H Chloride 106 Carbon Dioxide 26 BUN 18 Creatinine 0.97 Glucose 141 H Calcium 9.5 Magnesium 2.1 - Attending Attestation I examined this patient and my medical decision-making was reviewed with the [employer]PA/Advanced Practice Nurse/Resident Physician. I agree with the documented findings, disposition and treatment plan as described except to the extent set forth below. Pt hear for syncope appears to be orthostatics ? CP last gxt in 2014 was neg echo pending VSS JVD: 6 cm Chest: clear CVS: rrr EKG: no acute changes Enzymes: neg plan; do not think this is cardiac in nature will review echo ok for surgery from a CV standpoint Thanks
--- NOTE | 2016-05-19 11:23 | ECHO - Doppler Report ---
Echocardiogram Name: Wilfrid Beltran Date of Study: 05/19/2016 Date: 1935 Ht: 74.0 in Medical Record#: [id number] Age: 80 Wt: 144.0 lb Gender: Male BSA: 1.89 Order #: [id number] Location: [facility] Room #: [id number] Reading Physician: Cristobal Toth DO, DELTA, BETH BLACK Enamel Dipper: Aniyah Hamilton RDCS Ordering Physician: Danii Bee DO Primary Physician: Edson Menendez MD Indications: Pre-Operative, Pacemaker Dependent CM Impressions: LVEF 55-60%. Normal LV chamber size and function. Mild concentric left ventricular hypertrophy. Mild left ventricular diastolic dysfunction. Atypical septal motion consistent with post-operative status. Normal right ventricular structure and function. No evidence of pulmonary hypertension. No significant valvular dysfunction. LVEF appears improved compared to prior reports. Left Ventricular Wall Motion: Rest Echo Findings All wall segments showed normal motion. Findings: Study Quality * Technically adequate exam. ECG Findings * Paced rhythm. Left Ventricle * LVEF 55-60%. * Normal LV chamber size and function. * Mild concentric left ventricular hypertrophy. * Mild left ventricular diastolic dysfunction. * Atypical septal motion consistent with post-operative status. Right Ventricle * Normal right ventricular structure and function. Left Atrium * Normal left atrial size. Right Atrium * Normal right atrial size. Interatrial Septum * Interatrial septum not well evaluated. Aortic Valve * Trileaflet aortic valve with normal function. * No aortic stenosis. * No aortic regurgitation. Mitral Valve * Normal mitral valve structure and function. * No mitral regurgitation. * No mitral stenosis. Tricuspid Valve * Normal tricuspid valve structure and function. * Trace tricuspid regurgitation. * No evidence of pulmonary hypertension. Pulmonic Valve * Pulmonic valve is not well visualized. Aorta * Normally sized aortic root. Pericardium * The pericardium appears normal. IVC * The IVC is not well evaluated. Pulmonary Artery * Normal visualized portions of the main pulmonary artery. Device lead * Pacemaker per history. Device leads not well visualized. History Hypertension History of Smoking Years Packs 0.5 History of CAD/PTCA Myocardial Infarction Pacer/ICD Implant 12/12/2011 a Previous Echo was performed. Measurements: BP: 129/ 63 2D Normal Values RVIDd: 1.86 cm <2.7 cm IVSd: 1.20 cm 0.6 - 1.0 cm LVIDd: 4.82 cm 3.7 - 5.6 cm LVPWd: 1.20 cm 0.6 - 1.1 cm LVIDs: 2.42 cm 1.5 - 3.6 cm AO: 3.10 cm < 4.0 cm LA: 2.30 cm 2.0 - 4.0cm %FS: 49.80 cm >25 % LA volume: 17 Mitral Valve Peak E:.55 m/sec Peak A:.93 m/sec E/A Ratio:0.6 Peak E' Lat Rod:8.21 cm/s Peak E' Med Rod:5.84 cm/s E/E' Lat Ratio:6.7 E/E' Med Ratio:9.5 Tricuspid Valve TV Regurg Peak Grad: 13.00mmHg TV Regurg Peak Rod: 1.80m/sec Updated by Cristobal Toth DO, DELTA, BETH BLACK on 05/19/2016 11:16:03 AM electronically signed on 05/19/2016 11:16:28 AM with status of Final Wall Motion [place]: 1=Normal, 2=Hypokinesis, 3=Akinesis, 4=Dyskinesis, 5=Aneurysmal, 6=Hyperkinetic, X=Not Visualized (Blank)=Missing
--- NOTE | 2016-05-19 13:06 | Carotid Imaging Report ---
Carotid Duplex Patient Name:Wilfrid Beltran Order Number:[id number] Procedure Date:05/19/2016 Date:8Age:80 yrs Gender:Male Rt.BP:129 / 63 mmHgHeart Rate: Location:[facility] Room #: [facility] Obstetrics Nurse Practitioner:Aniyah Hamilton, ZUNILDA Referring MD:Danii Bee DO composition worker:Edson Menendez MD Reading MD:Will Cantu MD Primary Indications:Pre-Syncope Risk Factors Yes/No Hypertension Yes Smoking Current Yes Hx of CAD/PTCA Yes Impressions: Findings: Bilateral carotid system has nonstenotic plaque. Recommendations: Test completed on 05/19/2016 at 9:47:00 am. Findings Carotid Duplex: Right: The right proximal common carotid artery has a PSV of 118 cm/s and a EDV of 17 cm/s. There is nonstenotic plaque in the right mid common carotid artery with a PSV of 125 cm/s and a EDV of 15 cm/s. There is nonstenotic plaque in the right bifurcation with a PSV of 71 cm/s and a EDV of 14 cm/s. The right proximal internal carotid artery has a PSV of 114 cm/s and a EDV of 19 cm/s. The right mid internal carotid artery has a PSV of 90 cm/s and a EDV of 19 cm/s. The right distal internal carotid artery has a PSV of 65 cm/s and a EDV of 20 cm/s. The right eca has a PSV of 130 cm/s and a EDV of 14 cm/s. The right vertebral artery has a PSV of 56 cm/s and a EDV of 14 cm/s. There is antegrade spectral Doppler flow patterns. Left: The left proximal common carotid artery has a PSV of 82 cm/s and a EDV of 15 cm/s. The left mid common carotid artery has a PSV of 90 cm/s and a EDV of 23 cm/s. The left distal common carotid artery has a PSV of 67 cm/s and a EDV of 19 cm/s. There is nonstenotic plaque in the left bifurcation with a PSV of 58 cm/s and a EDV of 11 cm/s. The left proximal internal carotid artery has a PSV of 77 cm/s and a EDV of 21 cm/s. The left mid internal carotid artery has a PSV of 91 cm/s and a EDV of 27 cm/s. The left distal internal carotid artery has a PSV of 95 cm/s and a EDV of 26 cm/s. The left eca has a PSV of 105 cm/s and a EDV of 14 cm/s. The left vertebral artery has a PSV of 75 cm/s and a EDV of 13 cm/s. There is antegrade spectral Doppler flow patterns. Prior Study: No prior study available for comparison. Carotid Results Right PSV EDV Assessment Proximal CCA 118 17 Mid CCA 125 15 Non Stenotic Plaque Bifurcation 71 14 Non Stenotic Plaque Proximal ICA 114 19 Mid ICA 90 19 Distal ICA 65 20 ECA 130 14 Vertebral Artery 56 14 Antegrade Flow Left PSV EDV Assessment Proximal CCA 82 15 Mid CCA 90 23 Distal CCA 67 19 Bifurcation 58 11 Non Stenotic Plaque Proximal ICA 77 21 Mid ICA 91 27 Distal ICA 95 26 ECA 105 14 Vertebral Artery 75 13 Antegrade Flow Ratio's Right ICA/CCA Ratio: 0.92 ICA/CCA Values: 114/125 Left ICA/CCA Ratio: 1.05 ICA/CCA Values: 95/90 Updated by Will Cantu MD on 05/19/2016 1:00:28 PM electronically signed on 05/19/2016 1:00:42 PM with status of Final
--- NOTE | 2016-05-19 14:55 | Event Note ---
Date of Encounter: 05/19/16 Time of Encounter: 14:50 80-year-old male with multiple medical problems, admitted from skilled nursing after sustaining a mechanical fall. Patient was noted to have sustained right hip intertrochanteric fracture. Orthopedic surgery is on board and plan for likely ORIF in a.m. Patient seen and examined at bedside. Reports some pain in his right hip and thigh, controlled with pain medications. No chest pain, shortness of breath, cough. Awake, alert and oriented. Chest-S1, S2 heard. Lungs are clear to auscultation. Extremities-restricted range of motion at right hip and right knee. No pedal edema. Right lower extremity in external rotation and abduction at hip joint. Fall-likely mechanical but there was a question of near syncope and dizziness related to history of orthostatic hypotension. Bilateral carotid Doppler shows nonstenotic plaque. Continue gentle IV hydration. Noted to be on both JESSICA inhibitor and ARB, ARB held and dose of JESSICA inhibitor decreased per cardiology. Chronic combined CHF, CAD status post stent-cardiology consult appreciated, patient cleared for planned surgery with moderate risk. Echocardiogram shows improved ejection fraction from previous study, mild left ventricle diastolic dysfunction. Continue diuretics, JESSICA inhibitor and beta rafa. Right hip intertrochanteric fracture status post fall-orthopedic surgery consulted, plan for ORIF in a.m. Pain control with when necessary oral Percocet and IV morphine as needed. CT chest reviewed-shows no acute pulmonary abnormality. Patient is noted to have leukocytosis that is likely related to fracture and stress. DVT prophylaxis with subcutaneous Lovenox after surgery. Physical therapy evaluation after surgery. Patient reports that he has no living family and he would like Hilaria from his skilled nursing to be his medical power of attorney lawyer. He confirms his Code status is DNR/DNI.
[2016-05-19] MEDS: Nicotine 21 MG PATCH.TD24 TD SCH (15:27)
[2016-05-19] MEDS: 0.9 % Sodium Chloride 1,000 ML IVC SCH ×2 (18:40→20:13)
[2016-05-19] MEDS ORDERED: risperiDONE 0.25 MG TABLET PO SCH (21:00)
[2016-05-20] MEDS: *HR* OxyCODONE Immed Rel 5 MG TABLET PO PRN ×2 (01:33→10:27)
[2016-05-20 03:46] LABS: Hematocrit 29.5 % (37.5-50.1); Hemoglobin 9.2 g/dL (12.9-16.9); Mean Corpuscular HGB Conc 31.2 g/dL (31.6-35.5); Mean Corpuscular Hemoglobin 29.3 pg (28.0-33.3); Mean Corpuscular Volume 93.9 fL (83.0-100.0); Mean Platelet Volume 11.9 fL (9.4-12.4); Platelet Count 189 K/mcL (140-400); Red Blood Count 3.14 M/mcL (4.19-5.50); Red Cell Distribution Width 13.7 % (11.5-14.5)
[2016-05-20 03:47] LABS: Basophils # 0.1 K/mcL (0.0-0.2); Basophils % 0.6 %; Eosinophils # 0.3 K/mcL (0.0-0.6); Immature Granulocytes % 0.5 % (0-4); Lymphocytes # 1.6 K/mcL (0.6-4.6); Lymphocytes % 12.5 %; Monocytes # 1.9 K/mcL (0.0-1.3); Monocytes % 15.2 %; Neutrophils # 8.6 K/mcL (1.6-8.9); Segmented Neutrophils % 69.2 %
[2016-05-20 03:51] LABS: Prothrombin Time 11.1 Seconds (9.4-12.1)
[2016-05-20 04:07] LABS: BUN/Creatinine Ratio 17 (6-26); Blood Urea Nitrogen 19 mg/dL (8-26); Calcium 8.7 mg/dL (8.6-10.8); Carbon Dioxide 27 mEq/L (19-29); Chloride 105 mEq/L (98-109); Chol/HDL Ratio 4.8 (0-4.9); Cholesterol 176 mg/dL (< 200); Glucose 119 mg/dL (70-99); HDL Cholesterol 37 mg/dL (40-59); LDL Cholesterol,Calculated 117 mg/dL (0-99); Osmolality,Calculated 291 (280-300); Potassium 4.4 mEq/L (3.5-4.5); Sodium 139 mEq/L (136-145); Triglycerides 110 mg/dL (< 150); eGFR For African Americans > 60 (> 60); eGFR For Non-African Americans > 60 (> 60)
--- NOTE | 2016-05-20 06:31 | Orthopedics Progress Note ---
Date of Encounter: 05/20/16 Time of Encounter: 06:31 Subjective Interval history: Patient seen this morning with right hip fracture for surgery today open reduction intramedullary nail fixation. Objective Vital signs: Vital Signs Temp Pulse Resp BP Pulse Ox 05/20/16 02:44 98.2 F 70 18 120/60 100 05/19/16 23:06 98.2 F 71 18 100/65 100 05/19/16 23:05 100 05/19/16 20:19 75 110/66 05/19/16 19:37 99 05/19/16 18:51 97.8 F 75 18 98/62 99 05/19/16 15:52 99 05/19/16 14:37 97.6 F 95 16 176/67 96 05/19/16 11:29 98.3 F 79 16 126/53 96 05/19/16 07:34 98.0 F 66 17 101/62 100 Intake and Output 05/19/16 05/19/16 05/20/16 15:59 23:59 07:59 Intake Total 480 / 480 1340 / 1340 Output Total 900 / 900 300 / 300 Balance 480 / 480 440 / 440 -300 / -300 Intake: Oral 480 / 480 1340 / 1340 Output: Catheter 900 / 900 300 / 300 Other: Meal Lunch Dinner Percent of Meal Consumed 75% 100% - Labs CBC & BMP: 05/20/16 03:19 05/20/16 03:19 Labs: Abnormal lab results WBC 12.4 K/mcL (4.3-11.1) H 05/20/16 03:19 RBC 3.14 M/mcL (4.19-5.50) L 05/20/16 03:19 Hgb 9.2 g/dL (12.9-16.9) L 05/20/16 03:19 Hct 29.5 % (37.5-50.1) L 05/20/16 03:19 MCHC 31.2 g/dL (31.6-35.5) L 05/20/16 03:19 Monocytes # 1.9 K/mcL (0.0-1.3) H 05/20/16 03:19 Immature Plt Fraction 8.9 % (1.1-6.1) H 05/19/16 02:58 APTT 25.2 Seconds (26.0-36.0) L 05/19/16 02:58 Glucose 119 mg/dL (70-99) H 05/20/16 03:19 LDL Cholesterol, Calc 117 mg/dL (0-99) H 05/20/16 03:19 HDL Cholesterol 37 mg/dL (40-59) L 05/20/16 03:19 Urine Microscopic RBC 3-5 per hpf (0-3) H 05/19/16 03:30 Ur Squamous Epith Cells Many per lpf (None-Few) H 05/19/16 03:30 - VTE Documentation of Mechanical Device: Intermittent pneumatic compression device Consult Discharge Plan - Plan Referrals: Edson Menendez MD [Primary Care Provider] -
[2016-05-20] MEDS: Ranolazine 500 MG TAB.ER.12H PO SCH ×2 (07:55→21:14)
[2016-05-20] MEDS: Sucralfate 1 GM TABLET PO SCH ×3 (07:55→21:13)
[2016-05-20] MEDS: Furosemide 40 MG TABLET PO SCH (07:56)
[2016-05-20] MEDS: levETIRAcetam 250 MG TABLET PO SCH ×2 (07:56→21:14)
[2016-05-20] MEDS: Pantoprazole 40 MG VIAL IVP SCH (07:56)
[2016-05-20] MEDS: FLUoxetine 20 MG CAPSULE PO SCH (07:56)
[2016-05-20] MEDS: Nicotine 21 MG PATCH.TD24 TD SCH (07:57)
[2016-05-20] MEDS: 0.9 % Sodium Chloride 1,000 ML IVC SCH ×2 (12:46→21:06)
--- NOTE | 2016-05-20 12:51 | Internal Med Progress Note ---
Date of Encounter: 05/20/16 Time of Encounter: 12:45 - Assessment and plan (1) Hip fracture, intertrochanteric Current Visit: Yes Status: Acute Assessment and plan: s/p mechanical fall. Orthopedic surgery on board, awaiting ORIF of right hip today; IV hydration; pain control with PRN IV Morphine and PO Percocet; supportive care; bedrest for now; PT/OT evaluation after surgery; DVT prophylaxis with s.c Lovenox after surgery; Qualifiers: Encounter type: initial encounter Fracture type: closed Fracture alignment: nondisplaced Laterality: right Qualified Code(s): S72.144A - Nondisplaced intertrochanteric fracture of right femur, initial encounter for closed fracture (2) Depression Current Visit: Yes Status: Chronic Qualifiers: Depression Type: unspecified Qualified Code(s): F32.9 - Major depressive disorder, single episode, unspecified (3) CVA (cerebral vascular accident) Current Visit: Yes Status: Chronic Qualifiers: CVA mechanism: unspecified Qualified Code(s): I63.9 - Cerebral infarction, unspecified (4) Tobacco abuse Current Visit: Yes Status: Chronic Assessment and plan: continue Nicotine transdermal patch; not interested in smoking cessation at this time; (5) CAD (coronary artery disease) Current Visit: Yes Status: Chronic Assessment and plan: Hold antiplatelet agents in anticipation of surgery; continue statin, beta- rafa; Qualifiers: Coronary Disease-Associated Artery/Lesion type: [place] artery [place] vs. 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 Echocardiogram shows improved EF 55-60%, mild LV diastolic dysfunction, concentric LVH; Cardiology consult appreciated- cleared for surgery with moderate perioperative risk; continue home medications ; - Subjective Interval history: Reports 10/10 pain in right hip and thigh; no nausea, vomiting, chest pain, dyspnea; awaiting OR today for fracture repair of right hip; - Constitutional Vitals: Temp Pulse Resp BP Pulse Ox 97.2 F L 86 20 109/68 95 05/20/16 11:25 05/20/16 11:25 05/20/16 11:25 05/20/16 11:25 05/20/16 11:25 General appearance: Present: A&O X 3, answers questions appropriately - Respiratory Respiratory exam: Present: CTAB. Absent: accessory muscle use, rales, rhonchi, wheezes - Cardiovascular Cardiovascular exam: Present: RRR, +S1, +S2. Absent: diastolic murmur, gallop, rubs, systolic murmur - GI/Abdominal GI/Abdominal exam: Present: normal bowel sounds, soft, no peritoneal signs. Absent: distended, tenderness - Extremities Exam Extremities exam: Present: full ROM (restricted at right hip), tenderness (over right hip/groin; right LE in external rotation and abduction at hip joint), warm , radial pulses palpable and symetrical. Absent: calf tenderness, cyanotic, pedal edema Internal Medicine: Result - Labs CBC & Chem 7: 05/20/16 03:19 05/20/16 03:19 Labs: Short CBC 05/20/16 Range/Units 03:19 WBC 12.4 H (4.3-11.1) K/mcL Hgb 9.2 L (12.9-16.9) g/dL Hct 29.5 L (37.5-50.1) % Plt Count 189 (140-400) K/mcL Neutrophils # 8.6 (1.6-8.9) K/mcL BMP 05/20/16 03:19 Sodium 139 Potassium 4.4 Chloride 105 Carbon Dioxide 27 BUN 19 Creatinine 1.12 Glucose 119 H Calcium 8.7 - ABG Interpretation ABG results: PT/INR, D-dimer PT 11.1 Seconds (9.4-12.1) 05/20/16 03:19 - VTE Documentation of Mechanical Device: Intermittent pneumatic compression device Consult Discharge Plan - Plan Referrals: Deja Bailey, PAC [Physician Machine Rebuilder] - 06/06/16 10:45 am Edson Menendez MD [Primary Care Provider] -
--- NOTE | 2016-05-20 16:50 | Anesthesia Evaluation PreOp ---
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 Other Medical History: Denies Any Significant HX Alcohol Use: none Drug use: none Medications and Allergies Albuterol Sulfate [Albuterol Inhaler] 2 puff IH Q4H PRN 03/08/15 [History] Aspirin Enteric Coated [Aspirin] 81 mg PO DAILY 03/08/15 [History] Clopidogrel [Plavix] 75 mg PO DAILY 03/08/15 [History] FLUoxetine HCl [PROzac] 40 mg PO DAILY 03/08/15 [History] Fludrocortisone Acetate [Florinef] 0.1 mg PO DAILY 03/08/15 [History] Furosemide [Lasix] 40 mg PO DAILY 03/08/15 [History] LevETIRAcetam [Keppra] 500 mg PO BID 03/08/15 [History] Midodrine [ProAmatine] 10 mg PO TID 03/08/15 [History] Potassium Chloride 20 meq PO BID 03/08/15 [History] Ranolazine [Ranexa] 500 mg PO BID 03/08/15 [History] RisperiDONE [RisperDAL] 0.25 mg PO HS 03/08/15 [History] Sucralfate [Carafate] 1 gm PO QID 03/08/15 [History] Albuterol Neb [Proventil Neb] 2.5 mg IH Q4HR PRN 05/19/16 [History] Ferrous Gluconate 324 mg PO DAILY 05/19/16 [History] Lisinopril [Zestril] 5 mg PO DAILY 05/19/16 [History] Losartan Potassium [Cozaar] 25 mg PO DAILY 05/19/16 [History] Metoprolol [Lopressor] 12.5 mg PO BID 05/19/16 [History] Phenytoin ER [Dilantin ER] 300 mg PO HS 05/19/16 [History] Allergies nitroglycerin Allergy (Verified 03/08/15 14:01) Rash - Meds/Allergy Pre-op Review Medications Reviewed: Yes Allergies Reviewed: Yes Beta Blockers on Current Med List: Yes Anesthesia Results - Labs 05/20/16 03:19 05/20/16 03:19 - Imaging EKG: report reviewed (SR) Additional studies: LVEF 55% Anesthesia Exam O2 Sat O2 Sat by Pulse Oximetry 95 O2 Sat by Pulse Oximetry 95 O2 Sat by Pulse Oximetry 100 O2 Sat by Pulse Oximetry 100 O2 Sat by Pulse Oximetry 100 O2 Sat by Pulse Oximetry 100 O2 Sat by Pulse Oximetry 99 O2 Sat by Pulse Oximetry 99 O2 Sat by Pulse Oximetry 99 Vital Signs Temp Pulse Resp BP Pulse Ox 97.2 F L 59 18 125/67 98 05/18/16 23:25 05/18/16 23:25 05/18/16 23:25 05/18/16 23:25 05/18/16 23:25 Height: 6'2 Weight: 144 lbs NPO (# of Hours): MN - HEENT Pupil (Motor): Pupils equal, EOMI Mallampati: III Teeth: Edentulous Oral Opening: Less than or equal to 3 - BLACKSMITH HAMMER OPERATOR LOC: Oriented BLACKSMITH HAMMER OPERATOR Motor: Normal RUE, Normal LUE, Normal RLE, Normal LLE, Normal Face BLACKSMITH HAMMER OPERATOR Sensory: Normal: RUE, LUE, RLE, LLE, Face - Cardiac Rhythm: Regular Murmur: None JVD: No Carotid Bruit: No - Pulmonary Breath Sounds: bilateral Clear Respiratory Effort: Symmetrical Anesthesia Assess/Plan ASA Score: 4 (Carciomyopathy HTN CVA COPD) Modified Belding Scale for Level of Consciousness: Cooperative, oriented, and tranquil Anesthetic Plan: General Monitoring Plan: Standard Monitors Recovery Plan: PACU (Discussed GA, agrees to proceed)
[2016-05-20] MEDS ORDERED: Acetaminophen IV 1,000 MG/100 ML INFUS..BTL ONE (16:51)
[2016-05-20] MEDS ORDERED: Lidocaine -MPF 2% 2 ML VIAL ONE (16:54)
[2016-05-20] MEDS ORDERED: *HR* Propofol 200 MG/20 ML VIAL IVP ONE (16:54)
[2016-05-20] MEDS ORDERED: *HR* FentaNYL (PF) 100 MCG/2 ML VIAL ONE (16:54)
[2016-05-20] MEDS ORDERED: Ondansetron 4 MG/2 ML VIAL ONE (16:54)
[2016-05-20] MEDS ORDERED: Lidocaine -MPF 4% 5 ML AMPUL ONE (16:54)
--- NOTE | 2016-05-20 17:31 | Orthopedic Operative Note ---
Date of procedure: 05/20/16 Pre-op diagnosis: Right intertrochanteric hip fracture Post-op diagnosis: same Procedure: Procedure: Right hip open reduction intramedullary nail fixation Estimated blood loss: 50 cc Hardware:Synthes 10 x 235 TFN, 100 helical blade, 36 distal locking bolt Operative procedure: The patient was brought to the operating room and placed on the operating room table. After general anesthesia was administered the well leg was place in the well leg albright and the operative leg was placed in the fracture leg albright. All pressure points were padded appropriately. The operative extremity was prepped and draped in the sterile surgical fashion patient received IV antibiotic prior to skin incision. A standard direct lateral approach was made over the entry point of the greater trochanter, the incision was made through the skin and subcutaneous tissue hemostasis was obtained with Bovie cautery. Using careful sharp dissection the fascia was identified and incised, flouroscopic assistance was used to identify the entry point. The guidepin was placed at the entry point using fluroscopic assistance, it was over reamed with the proximal reamer. The nail was placed through the entry hole, across the fracture site into the distal fragment the position was confirmed with fluroscopy. A guide pin was placed through the proximal locking guide from the lateral femur through the nail across the fracture site into the femoral head, it was over reamed with the reamer. The 100 mm helical blade was placed over the guide pin through the nail into the femoral head, locked in place with the proximal locking bolt. 36 mm Distal locking bolt was placed through the distal locking guide. position of hardware and fracture reduction found to be acceptable with fluroscopic assistance. The wound was irrigated. Fascia was closed with a running #2 PDS suture. The deep tissue was irrigated and closed deep with #1 PDS suture superficially with 0 PDS suture and skin was closed with Dermabond and skin charlie. The patient was placed in a sterile dressing The patient was extubated and transferred to the recovery room in stable condition. Anesthesia: GETA Surgeon: Winston Santiago Condition: stable Disposition: PACU
[2016-05-20] MEDS ORDERED: EPHEDrine 50 MG/ML VIAL ONE (17:54)
--- NOTE | 2016-05-20 19:03 | Anesthesia Evaluation Post Op ---
Date of Encounter: 05/20/16 Time of Encounter: 19:02 - Vital Signs Vital Signs: Vital Signs/O2 Sat, Most Current Temp Pulse Resp BP Pulse Ox 97.3 F L 89 14 101/52 97 05/20/16 18:49 05/20/16 18:49 05/20/16 18:49 05/20/16 18:49 05/20/16 18:49 - Lungs Lungs: Clear Ascult./Percussion - Airway Airway: Non-obstructed - Cardiovascular Regular Rate - Mental Status Mental Status: Alert & Oriented, Answers Appropriately - Pain Pain Scale: 0 Pain Scale used: Numeric (1 - 10) - Nausea Vomiting Nausea Vomiting: Not Present - Hydration Hydration: NPO, Mauro catheter - Discharge PostOp Status: Transfer Patient to floor
[2016-05-20] MEDS ORDERED: *HR* Morphine 2 MG/ML SYRINGE IVP PRN (19:26)
[2016-05-20] MEDS ORDERED: Albuterol Neb 0.63 MG/3 ML VIAL IH PRN (19:26)
[2016-05-20] MEDS ORDERED: Acetaminophen 325 MG TABLET PO PRN (19:26)
[2016-05-20] MEDS ORDERED: Ondansetron 4 MG/2 ML VIAL IVP PRN (19:26)
[2016-05-20] MEDS ORDERED: Naloxone 0.4 MG/ML INJ IVP PRN ×2 (19:26)
[2016-05-20] MEDS ORDERED: *HR* OxyCODONE Immed Rel 5 MG TABLET PO PRN (19:26)
[2016-05-20] MEDS ORDERED: 0.9 % Sodium Chloride 500 ML IVC ONE (20:17)
[2016-05-20] MEDS ORDERED: Acetaminophen IV 1,000 MG/100 ML INFUS..BTL IVPB PRN (20:19)
[2016-05-20] MEDS: risperiDONE 0.25 MG TABLET PO SCH (21:14)
[2016-05-20] MEDS: ceFAZolin 2,000 MG in D5% in Water 100 ML IVPB SCH (23:42)
[2016-05-21] MEDS: 0.9 % Sodium Chloride 1,000 ML IVC SCH (04:46)
[2016-05-21 06:20] LABS: Hematocrit 27.1 % (37.5-50.1); Hemoglobin 8.3 g/dL (12.9-16.9)
--- NOTE | 2016-05-21 06:32 | Orthopedics Progress Note ---
Date of Encounter: 05/21/16 Time of Encounter: 06:31 Subjective Interval history: Patient was seen this morning doing well without complaints. Afebrile vital signs stable. Operative extremity: Neurovascularly intact Dressing clean dry and intact Calves nontender Assessment and plan: Continue with postoperative care Hemoglobin 8.3 plan for discharge tomorrow Objective Vital signs: Vital Signs Temp Pulse Resp BP Pulse Ox 05/21/16 03:59 98.5 F 100 23 104/64 100 05/20/16 23:42 97.5 F L 99 18 99/62 100 05/20/16 22:27 97.7 F 93 14 107/68 100 05/20/16 21:23 97.5 F L 102 16 110/56 97 05/20/16 20:30 97.8 F 92 14 93/61 95 05/20/16 20:00 97.6 F 89 15 89/54 95 05/20/16 19:15 97.7 F 89 14 96/55 94 L 05/20/16 19:06 89 14 92/52 96 05/20/16 18:59 88 14 122/51 97 05/20/16 18:49 97.3 F L 89 14 92/52 97 05/20/16 18:39 93 14 91/61 92 L 05/20/16 18:29 93 14 96/56 95 05/20/16 18:19 97.0 F L 94 14 87/59 96 05/20/16 18:09 96 12 95/53 100 05/20/16 17:59 86 12 83/47 100 05/20/16 17:55 86 12 74/44 100 05/20/16 17:49 97.5 F L 78 12 60/34 100 05/20/16 11:25 97.2 F L 86 20 109/68 95 05/20/16 07:58 97.8 F 83 14 100/63 95 Intake and Output 05/20/16 05/20/16 05/21/16 15:59 23:59 07:59 Intake Total 1000 / 1000 500 / 500 800 / 800 Output Total 850 / 850 50 / 50 450 / 450 Balance 150 / 150 450 / 450 350 / 350 Intake: IV Fluids 1000 / 1000 500 / 500 700 / 700 0.9 % Sodium Chloride 1, 1000 / 1000 500 / 500 500 / 500 000 ML @ 60 mls/hr IVC . [id number] [facility] Rx#: [id number] Ofirmev 1,000 mg In 100 100 / 100 ml @ 400 mls/hr IVPB Q6HR PRN Rx#:[id number] Ancef 2,000 MG In 100 / 100 Dextrose 5% 100 ML @ 200 mls/hr IVPB Q8HR [facility] Rx#: [id number] Oral 100 / 100 Output: Estimated Blood Loss 50 / 50 Catheter 850 / 850 450 / 450 Other: Meal NPO For Lunch - Labs CBC & BMP: 05/21/16 05:59 05/20/16 03:19 Labs: Abnormal lab results WBC 12.4 K/mcL (4.3-11.1) H 05/20/16 03:19 RBC 3.14 M/mcL (4.19-5.50) L 05/20/16 03:19 Hgb 8.3 g/dL (12.9-16.9) L 05/21/16 05:59 Hct 27.1 % (37.5-50.1) L 05/21/16 05:59 MCHC 31.2 g/dL (31.6-35.5) L 05/20/16 03:19 Monocytes # 1.9 K/mcL (0.0-1.3) H 05/20/16 03:19 Immature Plt Fraction 8.9 % (1.1-6.1) H 05/19/16 02:58 APTT 25.2 Seconds (26.0-36.0) L 05/19/16 02:58 Glucose 119 mg/dL (70-99) H 05/20/16 03:19 LDL Cholesterol, Calc 117 mg/dL (0-99) H 05/20/16 03:19 HDL Cholesterol 37 mg/dL (40-59) L 05/20/16 03:19 Urine Microscopic RBC 3-5 per hpf (0-3) H 05/19/16 03:30 Ur Squamous Epith Cells Many per lpf (None-Few) H 05/19/16 03:30 - VTE Documentation of Mechanical Device: Intermittent pneumatic compression device Consult Discharge Plan - Plan Referrals: Deja Bailey, PAC [Physician Lead Cargoman] - 06/06/16 10:45 am Edson Menendez MD [Primary Care Provider] -
[2016-05-21] MEDS ORDERED: Furosemide 20 MG/2 ML VIAL IVP ONE (07:13)
[2016-05-21] MEDS: ceFAZolin 2,000 MG in D5% in Water 100 ML IVPB SCH (07:54)
[2016-05-21] MEDS ORDERED: Albuterol 2.5 MG/3 ML NEBULIZER IH PRN (09:19)
--- NOTE | 2016-05-21 09:28 | Internal Med Progress Note ---
Date of Encounter: 05/21/16 Time of Encounter: 09:21 - Assessment and plan (1) Anemia Current Visit: Yes Status: Acute Assessment and plan: Likely blood loss anemia status post surgery We will transfuse 2 units PRBCs No active bleeding noted at this time Continue to monitor H&H Qualifiers: Anemia type: other cause Other causes of anemia: other cause, not classified Qualified Code(s): D64.89 - Other specified anemias (2) Hip fracture, intertrochanteric Current Visit: Yes Status: Acute Assessment and plan: s/p mechanical fall. Orthopedic surgery consultation appreciated Status post ORIF of right hip-postop day 1 Continue pain control with PRN IV Morphine and PO Percocet supportive care PT/OT evaluation DVT prophylaxis with s.c Lovenox after surgery starting tomorrow as patient is receiving blood transfusions today; DVT prophylaxis with IPCD today Qualifiers: Encounter type: initial encounter Fracture type: closed Fracture alignment: nondisplaced Laterality: right Qualified Code(s): S72.144A - Nondisplaced intertrochanteric fracture of right femur, initial encounter for closed fracture (3) CAD (coronary artery disease) Current Visit: Yes Status: Chronic Assessment and plan: Restarted aspirin continue statin, beta-rafa Qualifiers: Coronary Disease-Associated Artery/Lesion type: [place] artery [place] vs. 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 Echocardiogram shows improved EF 55-60%, mild LV diastolic dysfunction, concentric LVH continue home medications (6) Depression Current Visit: Yes Status: Chronic Qualifiers: Depression Type: unspecified Qualified Code(s): F32.9 - Major depressive disorder, single episode, unspecified (7) Tobacco abuse Current Visit: Yes Status: Chronic Assessment and plan: continue Nicotine transdermal patch not interested in smoking cessation at this time (8) DVT prophylaxis Current Visit: Yes Status: Acute Assessment and plan: IPCD Lovenox subcutaneous starting tomorrow - Subjective Interval history: Patient seen and examined at bedside. Reports of being comfortable at this time. Denies any pain at this time. No overnight events reported. Status post right ORIF surgery postop day 1. Noted to have drop in H&H, ordered to receive 2 units of PRBCs as per orthopedic surgery. - Constitutional Vitals: Temp Pulse Resp BP Pulse Ox 97.4 F L 92 16 97/62 100 05/21/16 06:38 05/21/16 08:11 05/21/16 06:38 05/21/16 08:11 05/21/16 08:11 General appearance: Present: A&O X 3, pleasant, no acute distress, answers questions appropriately - Head Head exam: Present: atraumatic, normocephalic - Eye Eye exam: Present: normal appearance, conjuntiva pink, sclera anicteric - Respiratory Respiratory exam: Present: CTAB. Absent: respiratory distress, wheezes - Cardiovascular Cardiovascular exam: Present: RRR, +S1, +S2 - GI/Abdominal GI/Abdominal exam: Present: normal bowel sounds, soft. Absent: tenderness - Extremities Exam Extremities exam: Present: warm, radial pulses palpable and symetrical. Absent : calf tenderness, pedal edema, tenderness - Neurological Exam Neurological exam: Present: alert, oriented X3, no focal deficits - Psychiatric Psychiatric exam: Present: normal affect, normal mood Internal Medicine: Result - Labs CBC & Chem 7: 05/21/16 05:59 05/20/16 03:19 Labs: Short CBC 05/21/16 Range/Units 05:59 Hgb 8.3 L (12.9-16.9) g/dL Hct 27.1 L (37.5-50.1) % - ABG Interpretation ABG results: PT/INR, D-dimer PT 11.1 Seconds (9.4-12.1) 05/20/16 03:19 - Impressions Impressions Fluoroscopy 05/20/16 17:13 IMPRESSION: Intraprocedural fluoroscopic spot images as above. See separate procedure report for more information. D/ / Vazquez Mccarthy MD / Vazquez Mccarthy MD Interpreting Provider: Vazquez Mccarthy MD Hip X-Ray 05/20/16 17:13 IMPRESSION: Intraprocedural fluoroscopic spot images as above. See separate procedure report for more information. D/ / Vazquez Mccarthy MD / Vazquez Mccarthy MD Interpreting Provider: Vazquez Mccarthy MD - VTE Documentation of Mechanical Device: Venous foot pump, device Consult Discharge Plan - Plan Referrals: Deja Bailey, PAC [Physician Flat Drier] - 06/06/16 10:45 am Edson Menendez MD [Primary Care Provider] -
[2016-05-21] MEDS: Sucralfate 1 GM TABLET PO SCH ×4 (09:57→21:03)
[2016-05-21] MEDS: Ranolazine 500 MG TAB.ER.12H PO SCH ×2 (09:57→21:03)
[2016-05-21] MEDS: Aspirin Enteric Coated 81 MG Tablet PO SCH (09:57)
[2016-05-21] MEDS: Pantoprazole 40 MG VIAL IVP SCH (09:59)
[2016-05-21] MEDS: levETIRAcetam 250 MG TABLET PO SCH ×2 (09:59→21:04)
[2016-05-21] MEDS: FLUoxetine 20 MG CAPSULE PO SCH (09:59)
[2016-05-21] MEDS: Nicotine 21 MG PATCH.TD24 TD SCH (10:00)
[2016-05-21] MEDS: Furosemide 40 MG TABLET PO SCH (10:41)
[2016-05-21] MEDS ORDERED: 0.9 % Sodium Chloride 250 ML ONE ×2 (10:46→14:43)
--- NOTE | 2016-05-21 16:22 | Electrocardiograph Report ---
[place] [id number] Test Date: 2016-05-19 Pat Name: Wilfrid Beltran Department: 105 Room: [facility] Gender: M Career Development Consultant: : 1935 Requested By: Navdeep Nowak Order Number: [id number] Reading MD: Debora Christianson Measurements Intervals [place] Rate: 65 P: -86 OK: 235 QRS: -20 QRSD: 128 T: 85 QT: 429 QTc: 440 Interpretive Statements ELECTRONIC ATRIAL PACEMAKER MODERATE INTRAVENTRICULAR CONDUCTION DELAY [105+ ms QRS DURATION, 80+ ms Q/S IN V1/V2, NO Q AND 60+ ms R IN I/aVL/V5/V6] NONSPECIFIC T-WAVE ABNORMALITY Electronically Signed On 05-21-2016 16:21:07 EST by Debora Christianson
--- NOTE | 2016-05-21 16:22 | Electrocardiograph Report ---
[place] [address] Test Date: 2016-05-19 Pat Name: Wilfrid Beltran Department: 113 Room: [facility] Gender: M Phone Specialist: : 1935 Requested By: Danii Bee Order Number: [id number] Reading MD: Debora Christianson Measurements Intervals [place] Rate: 71 P: 34 IA: 175 QRS: -27 QRSD: 129 T: 95 QT: 410 QTc: 433 Interpretive Statements SINUS RHYTHM MODERATE INTRAVENTRICULAR CONDUCTION DELAY ST DEVIATION AND MODERATE T-WAVE ABNORMALITY, CONSIDER LATERAL ISCHEMIA Electronically Signed On 05-21-2016 16:21:22 EST by Debora Christianson
[2016-05-21] MEDS: risperiDONE 0.25 MG TABLET PO SCH (21:04)
[2016-05-22 06:05] LABS: Basophils % 0.3 %; Eosinophils % 0.1 %; Hematocrit 30.2 % (37.5-50.1); Hemoglobin 9.7 g/dL (12.9-16.9); Immature Granulocytes % 0.7 % (0-4); Lymphocytes # 1.6 K/mcL (0.6-4.6); Lymphocytes % 10.5 %; Mean Corpuscular HGB Conc 32.1 g/dL (31.6-35.5); Mean Corpuscular Hemoglobin 28.9 pg (28.0-33.3); Mean Corpuscular Volume 89.9 fL (83.0-100.0); Mean Platelet Volume 12.1 fL (9.4-12.4); Monocytes # 2.1 K/mcL (0.0-1.3); Monocytes % 14.4 %; Platelet Count 141 K/mcL (140-400); Red Blood Count 3.36 M/mcL (4.19-5.50); Red Cell Distribution Width 15.1 % (11.5-14.5)
[2016-05-22 06:25] LABS: BUN/Creatinine Ratio 15 (6-26); Blood Urea Nitrogen 18 mg/dL (8-26); Calcium 8.9 mg/dL (8.6-10.8); Carbon Dioxide 16 mEq/L (19-29); Chloride 111 mEq/L (98-109); Glucose 150 mg/dL (70-99); Magnesium 1.6 mg/dL (1.6-2.6); Osmolality,Calculated 293 (280-300); Phosphorous 1.9 mg/dL (2.3-4.7); Potassium 4.8 mEq/L (3.5-4.5); Sodium 139 mEq/L (136-145); eGFR For African Americans > 60 (> 60); eGFR For Non-African Americans > 60 (> 60)
[2016-05-22] MEDS: 0.9 % Sodium Chloride 1,000 ML IVC SCH (06:28)
--- NOTE | 2016-05-22 06:48 | Orthopedics Progress Note ---
Date of Encounter: 05/22/16 Time of Encounter: 06:48 Subjective Interval history: Patient was seen this morning doing well without complaints. Afebrile vital signs stable. Operative extremity: Neurovascularly intact Dressing clean dry and intact Calves nontender Assessment and plan: Continue with postoperative care Stable for discharge Objective Vital signs: Vital Signs Temp Pulse Resp BP Pulse Ox 05/22/16 06:42 97.9 F 81 16 101/64 96 05/22/16 01:26 98.5 F 80 16 136/53 96 05/21/16 21:38 99.0 F 89 15 124/66 100 05/21/16 21:09 123/71 05/21/16 17:25 98.7 F 90 18 131/76 98 05/21/16 16:28 98.2 F 89 18 102/65 100 05/21/16 16:27 91 102/65 100 05/21/16 15:20 98.4 F 90 16 92/50 100 05/21/16 15:05 97.6 F 96 17 108/58 100 05/21/16 14:13 98.1 F 96 17 111/66 100 05/21/16 12:33 98.4 F 95 17 122/70 100 05/21/16 12:00 100 05/21/16 11:37 97.8 F 95 18 111/69 100 05/21/16 11:22 98.1 F 95 19 95/57 100 05/21/16 09:50 107/67 05/21/16 08:11 92 97/62 100 Intake and Output 05/21/16 05/21/16 05/22/16 15:59 23:59 07:59 Intake Total 350 / 350 1350 / 1350 Output Total 125 / 125 Balance 350 / 350 1225 / 1225 Intake: IV Fluids 1000 / 1000 0.9 % Sodium Chloride 1, 1000 / 1000 000 ML @ 60 mls/hr IVC . [id number] [facility] Rx#: [id number] Blood Product 350 / 350 350 / 350 Rbcs Leuko Poor As-1 0 / 0 350 / 350 Unit [id number] Rbcs Leuko Poor As-1 350 / 350 Unit [id number] Output: Urine 125 / 125 - Labs CBC & BMP: 05/22/16 05:52 05/22/16 05:52 Labs: Abnormal lab results WBC 14.8 K/mcL (4.3-11.1) H 05/22/16 05:52 RBC 3.36 M/mcL (4.19-5.50) L 05/22/16 05:52 Hgb 9.7 g/dL (12.9-16.9) L 05/22/16 05:52 Hct 30.2 % (37.5-50.1) L 05/22/16 05:52 RDW 15.1 % (11.5-14.5) H 05/22/16 05:52 Neutrophils # 11.0 K/mcL (1.6-8.9) H 05/22/16 05:52 Monocytes # 2.1 K/mcL (0.0-1.3) H 05/22/16 05:52 Immature Plt Fraction 8.9 % (1.1-6.1) H 05/19/16 02:58 APTT 25.2 Seconds (26.0-36.0) L 05/19/16 02:58 Potassium 4.8 mEq/L (3.5-4.5) H 05/22/16 05:52 Chloride 111 mEq/L (98-109) H 05/22/16 05:52 Carbon Dioxide 16 mEq/L (19-29) L 05/22/16 05:52 Glucose 150 mg/dL (70-99) H 05/22/16 05:52 Phosphorus 1.9 mg/dL (2.3-4.7) L 05/22/16 05:52 LDL Cholesterol, Calc 117 mg/dL (0-99) H 05/20/16 03:19 HDL Cholesterol 37 mg/dL (40-59) L 05/20/16 03:19 Urine Microscopic RBC 3-5 per hpf (0-3) H 05/19/16 03:30 Ur Squamous Epith Cells Many per lpf (None-Few) H 05/19/16 03:30 - VTE Documentation of Mechanical Device: Venous foot pump, device Consult Discharge Plan - Plan Referrals: Winston Santiago MD [Partnered Physician] - 07/02/16 8:05 am Deja Bailey, PAC [Physician Leveler Helper] - 06/06/16 10:45 am Edson Menendez MD [Primary Care Provider] -
[2016-05-22] MEDS: levETIRAcetam 250 MG TABLET PO SCH (09:23)
[2016-05-22] MEDS: Ranolazine 500 MG TAB.ER.12H PO SCH (09:24)
[2016-05-22] MEDS: FLUoxetine 20 MG CAPSULE PO SCH (09:24)
[2016-05-22] MEDS: Sucralfate 1 GM TABLET PO SCH ×2 (09:25→12:21)
[2016-05-22] MEDS: Aspirin Enteric Coated 81 MG Tablet PO SCH (09:25)
[2016-05-22] MEDS: Pantoprazole 40 MG VIAL IVP SCH (09:25)
[2016-05-22] MEDS: Nicotine 21 MG PATCH.TD24 TD SCH (09:25)
[2016-05-22] MEDS: Furosemide 40 MG TABLET PO SCH (09:45)
--- NOTE | 2016-05-22 10:19 | Discharge Summary ---
Date of Encounter: 05/22/16 Time of Encounter: 09:30 - Discharge Diagnosis (1) Anemia Priority: Secondary Status: Acute Qualifiers: Anemia type: other cause Other causes of anemia: other cause, not classified Qualified Code(s): D64.89 - Other specified anemias (2) Hip fracture, intertrochanteric Priority: Primary Status: Acute Qualifiers: Encounter type: initial encounter Fracture type: closed Fracture alignment: nondisplaced Laterality: right Qualified Code(s): S72.144A - Nondisplaced intertrochanteric fracture of right femur, initial encounter for closed fracture (3) CAD (coronary artery disease) Priority: Secondary Status: Chronic Qualifiers: Coronary Disease-Associated Artery/Lesion type: [place] artery [place] vs. 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 Priority: Secondary Status: Chronic (6) Depression Priority: Secondary Status: Chronic Qualifiers: Depression Type: unspecified Qualified Code(s): F32.9 - Major depressive disorder, single episode, unspecified (7) Tobacco abuse Priority: Secondary Status: Chronic (8) DVT prophylaxis Priority: Secondary Status: Acute - Discharge Medications Prescriptions: OxyCODONE Immed Rel [Roxicodone 5 MG] 5 mg PO Q4HR PRN #20 tablet PRN Reason: Pain Docusate [Colace] 100 mg PO BID PRN #20 capsule PRN Reason: Constipation Home Medications: Albuterol Sulfate [Albuterol Inhaler] 2 puff IH Q4H PRN 03/08/15 [History] Aspirin Enteric Coated [Aspirin EC] 81 mg PO DAILY 03/08/15 [History] Clopidogrel [Plavix] 75 mg PO DAILY 03/08/15 [History] FLUoxetine HCl [Prozac] 40 mg PO DAILY 03/08/15 [History] Fludrocortisone Acetate [Florinef] 0.1 mg PO DAILY 03/08/15 [History] Furosemide [Lasix] 40 mg PO DAILY 03/08/15 [History] LevETIRAcetam [Keppra] 500 mg PO BID 03/08/15 [History] Midodrine [ProAmatine] 10 mg PO TID 03/08/15 [History] Potassium Chloride 20 meq PO BID 03/08/15 [History] Ranolazine [Ranexa] 500 mg PO BID 03/08/15 [History] RisperiDONE [RisperDAL] 0.25 mg PO HS 03/08/15 [History] Sucralfate [Carafate] 1 gm PO QID 03/08/15 [History] Albuterol Neb [Proventil Neb] 2.5 mg IH Q4HR PRN 05/19/16 [History] Ferrous Gluconate 324 mg PO DAILY 05/19/16 [History] Lisinopril [Zestril] 5 mg PO DAILY 05/19/16 [History] Losartan Potassium [Cozaar] 25 mg PO DAILY 05/19/16 [History] Metoprolol [Lopressor] 12.5 mg PO BID 05/19/16 [History] Phenytoin ER [Dilantin ER] 300 mg PO HS 05/19/16 [History] Docusate [Colace] 100 mg PO BID PRN #20 capsule 05/22/16 [Rx] OxyCODONE Immed Rel [Roxicodone 5 MG] 5 mg PO Q4HR PRN #20 tablet 05/22/16 [Rx] Allergies/Adverse Reactions: Allergies nitroglycerin Allergy (Verified 03/08/15 14:01) Rash Date of admission: 05/19/16 02:00 Primary care physician: Edson Menendez MD Consults: 05/19/16 03:39 Consult to Cardiology [CONS] Routine Comment: Consulting Provider: Cardiology Clarisa Reason for Consult: Pacemaker interrogation Pre-op assessment Call Completed: No 05/20/16 19:26 Consult to Occupational Therapy [CONS] Routine Comment: Evaluate, develop and implement POC Consult to Orthopedic Navigator [CONS] [CONS] Routine Consult to Physical Therapy [CONS] Routine Comment: Evaluate, develop and implement POC RT Post Op Consult [CONS] Routine Discharging clinician: Jocelyn Lewis Anticipated date of discharge: 05/22/16 - Patient Status Disposition: Transfer SNF Condition: Good Functional capacity at discharge: uses cane/walker Overall status at discharge: patient is progressing back to baseline - Discharge Instructions Follow Up With: Winston Santiago MD [Partnered Physician] - 07/02/16 8:05 am Deja Bailey PAC [Physician Cut Out Stitcher] - 06/06/16 10:45 am Edson Menendez MD [Primary Care Provider] - Additional Instructions: Please follow up with your primary care physician within one week after your discharge from the hospital. Please follow up with surgery as listed above. Please keep the dressing intact until your follow up with surgery. continue aspirin and plavix for DVT prophylaxis as per surgery please resume all your home medications as prescribed by your primary care physician. - Diet and Activity Activity: as per physical therapy Diet: advance to your usual diet Hospital course: Mr. Beltran is a 80 year old male with extensive medical history who was admitted for management of right femur fracture. Patient was seen by orthopedic surgery and underwent ORIF of right hip. His postop course was complicated with drug loss anemia, requiring blood transfusions. His repeat H&H remained stable thereafter. He was evaluated by physical therapy and SNF placement was recommended. As per ortho, patient is to continue Asa and plavix for DVT prophylaxis. He is to follow up with surgery, and PCP within one week after discharge from the hospital. Patient demonstrates understanding of his diagnosis , discharge care and plan. - Time Spent with Patient Total time spent providing and/or coordinating discharge services: - Constitutional Vitals: Temp Pulse Resp BP Pulse Ox 98.0 F 83 18 102/62 98 05/22/16 09:37 05/22/16 09:37 05/22/16 09:37 05/22/16 09:37 05/22/16 09:37 General appearance: Present: A&O X 3, pleasant, no acute distress, answers questions appropriately - Head Head exam: Present: atraumatic, normocephalic - Eye Eye exam: Present: normal appearance, conjuntiva pink, sclera anicteric - Respiratory Respiratory exam: Absent: respiratory distress, wheezes - Cardiovascular Cardiovascular exam: Present: RRR, +S1, +S2 - GI/Abdominal GI/Abdominal exam: Present: normal bowel sounds, soft. Absent: distended, tenderness - Extremities Exam Extremities exam: Present: warm, radial pulses palpable and symetrical. Absent : tenderness - Neurological Exam Neurological exam: Present: alert, oriented X3 - Psychiatric Psychiatric exam: Present: normal affect, normal mood - VTE Documentation of Mechanical Device: Venous foot pump, device
--- NOTE | 2016-05-22 16:06 | Physician Discharge Referral ---
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 Priority: Secondary Status: Chronic (6) Depression Priority: Secondary Status: Chronic (7) Tobacco abuse Priority: Secondary Status: Chronic (8) DVT prophylaxis Priority: Secondary Status: Acute - Transfer Medications Prescriptions: OxyCODONE Immed Rel [Roxicodone 5 MG] 5 mg PO Q4HR PRN #20 tablet PRN Reason: Pain Docusate [Colace] 100 mg PO BID PRN #20 capsule PRN Reason: Constipation Home Medications: Albuterol Sulfate [Albuterol Inhaler] 2 puff IH Q4H PRN 03/08/15 [History] Aspirin Enteric Coated [Aspirin] 81 mg PO DAILY 03/08/15 [History] Clopidogrel [Plavix] 75 mg PO DAILY 03/08/15 [History] FLUoxetine HCl [PROzac] 40 mg PO DAILY 03/08/15 [History] Fludrocortisone Acetate [Florinef] 0.1 mg PO DAILY 03/08/15 [History] Furosemide [Lasix] 40 mg PO DAILY 03/08/15 [History] LevETIRAcetam [Keppra] 500 mg PO BID 03/08/15 [History] Midodrine [ProAmatine] 10 mg PO TID 03/08/15 [History] Potassium Chloride 20 meq PO BID 03/08/15 [History] Ranolazine [Ranexa] 500 mg PO BID 03/08/15 [History] RisperiDONE [RisperDAL] 0.25 mg PO HS 03/08/15 [History] Sucralfate [Carafate] 1 gm PO QID 03/08/15 [History] Albuterol Neb [Proventil Neb] 2.5 mg IH Q4HR PRN 05/19/16 [History] Ferrous Gluconate 324 mg PO DAILY 05/19/16 [History] Lisinopril [Zestril] 5 mg PO DAILY 05/19/16 [History] Losartan Potassium [Cozaar] 25 mg PO DAILY 05/19/16 [History] Metoprolol [Lopressor] 12.5 mg PO BID 05/19/16 [History] Phenytoin ER [Dilantin ER] 300 mg PO HS 05/19/16 [History] Docusate [Colace] 100 mg PO BID PRN #20 capsule 05/22/16 [Rx] OxyCODONE Immed Rel [Roxicodone 5 MG] 5 mg PO Q4HR PRN #20 tablet 05/22/16 [Rx] Allergies/Adverse Reactions: Allergies nitroglycerin Allergy (Verified 03/08/15 14:01) Rash - Respiratory Orders Smoking Cessation: Smoking cessation has been advised. For more information, call the [employer] Tobacco Quit Line at 9-982-JTJS-NOW. - Treatments List/Other: Please follow up with your primary care physician within one week after your discharge from the hospital. Please follow up with surgery as listed above. Please keep the dressing intact until your follow up with surgery. continue aspirin and plavix for DVT prophylaxis as per surgery please resume all your home medications as prescribed by your primary care physician. CERTIFICATION: I certify that the transfer of the above named patient to an Extended Care Facility is necessary for the continuing treatment of the diagnosis listed. The above information is true and accurate reflection of patient's current condition. Confidential - Redisclosure prohibited without a patient's written consent.
[2016-05-22 16:10] VITALS: BP 114/66
== END 2016-05-22 18:11 | DRG 481 ==
LOC: EMEROO 23:23 → SUATTDRO 05-19 02:00 → 3BNU 05-19 02:00 → 3NENU 05-20 17:50
PROVIDERS: ADMIT Internal Medicine; ATTEND Internal Medicine